=== PATIENT | male | born 1965 ===

== ENCOUNTER 2018-06-23 11:11 | Observation (INO) | payer OTHER ==
--- NOTE | 2018-06-23 12:14 | C.PDOC ---
History Of Present Illness 52 y/o male presents to ED with c/o left eye twitching for 1 week and left arm numbness described as "pins and needles" for 2 days. Patient states numbness started on fingertips and arm radiating to elbow. Patient reports yesterday had mild headache and slight dizziness which resolved on its own. Today while at work patient developed numbness to left 3 digits unable to move and numbness sensation to left cheek. Patient denies visual changes, changes in speech, ETOH or drug use. Time Seen by Provider: 06/23/18 11:46 Chief Complaint (Nursing): Weakness/Neurological Deficit History Per: Patient History/Exam Limitations: no limitations Onset/Duration Of Symptoms: Days Current Symptoms Are (Timing): Still Present Past Medical History Reviewed: Historical Data, Nursing Documentation, Vital Signs Vital Signs: Last Vital Signs Temp 98.4 F 06/23/18 11:19 Pulse 65 06/23/18 11:19 Resp 18 06/23/18 11:19 BP 177/90 H 06/23/18 11:19 Pulse Ox 97 06/23/18 11:19 - Medical History PMH: Hypercholesterolemia Surgical History: No Surg Hx - [facility] Procedures BONE GRAFT TO FACE BONE (05/13/14) OTHER THERAPEUTIC APHERESIS (05/13/14) PARTIAL MANDIBULECTOMY (05/13/14) WIDE EXC BONY PALATE LES (05/13/14) Family History: States: No Known Family Hx - Social History Hx Alcohol Use: No Hx Substance Use: No Review Of Systems Constitutional: Negative for: Fever, Chills Cardiovascular: Negative for: Chest Pain Respiratory: Negative for: Shortness of Breath Gastrointestinal: Negative for: Nausea, Vomiting, Abdominal Pain, Diarrhea Neurological: Positive for: Numbness (to left arm and elbow, left cheek). Negative for: Weakness, Change in Speech, Confusion, Headache, Dizziness Physical Exam - Physical Exam Appears: Non-toxic, No Acute Distress Skin: Warm, Dry, No Rash Head: Atraumatic, Normacephalic Eye(s): bilateral: Normal Inspection Oral Mucosa: Moist Neck: Normal ROM, Supple Cardiovascular: Rhythm Regular Respiratory: Normal Breath Sounds, No Rales, No Rhonchi, No Wheezing Gastrointestinal/Abdominal: Soft, No Tenderness, No Guarding, No Rebound Neurological/Psych: Oriented x3, Normal Speech (speaking in full sentences), Normal Cognition, Normal Motor, Normal Sensation, Other (no facial droop) ED Course And Treatment - Laboratory Results Result Diagrams: 06/23/18 12:31 06/23/18 12:31 Lab Interpretation: No Acute Changes ECG: Interpreted By Me, Viewed By Me ECG Rhythm: Sinus Rhythm ECG Interpretation: No Acute Changes Rate From EC O2 Sat by Pulse Oximetry: 97 (RA) Pulse Ox Interpretation: Normal - CT Scan/US HEad Other Rad Studies (CT/US): Read By Radiologist, Radiology Report Reviewed CT/US Interpretation: Accession No. : [id number]. Patient Name / ID : NICOLASA BUTLER / [id number]. Exam Date : 06/23/2018 12:36:29 ( Approved ). Study Comment : Sex / Age : M / 52Y. Creator : Charmaine Moore. Dictator : Robyn Thomas V. Woodworking Craftsman : Sales And Service Specialist : Robyn Thomas V. Approver2 : Report Date : 06/23/2018 12:41:08. My Comment : . This report is currently processing and HAS NOT BEEN OFFICIALLY SIGNED BY THE PHYSICIAN - ESTIMATED TIME OF APPROVAL IS 06/23/2018 13:14. Date of service: 06/23/2018. PROCEDURE: CT HEAD WITHOUT CONTRAST. HISTORY: TIA. COMPARISON: A CT maxillofacial study 02/17/2014 is noted. TECHNIQUE: Axial computed tomography images were obtained through the head/brain without intravenous contrast. Radiation dose: Total exam DLP = 1029.17 mGy-cm. This CT exam was performed using one or more of the following dose reduction techniques: Automated exposure control, adjustment of the mA and/or kV according to patient size, and/or use of iterative reconstruction technique. FINDINGS: HEMORRHAGE: No intracranial hemorrhage. BRAIN: A 7 mm rounded hypodensity in the right basal ganglionic- caudate nucleus present of unknown chronicity. No marked mass effect here is appreciated. The chronicity of this appearance is unknown. A lacunar infarct here is 1 consideration. Other etiologies are not excluded, if further evaluation is needed consider MRI of the brain without with contrast. Is difficult to confirm or refute the presence of such a finding on the prior CT study-equivocal hypodensity similar in size but not exactly similar in position is question on the CT maxillofacial study from series 3, image 91. VENTRICLES: Unremarkable. No hydrocephalus. CALVARIUM: Unremarkable. PARANASAL SINUSES: Unremarkable as visualized. No significant inflammatory changes. MASTOID AIR CELLS: Unremarkable as visualized. No inflammatory changes. OTHER FINDINGS: None. IMPRESSION: Approximately 7 mm rounded hypodensity in the right caudate nucleus of indeterminate chronicity. No gross hemorrhage or mass effect or edema associated with this is appreciated. A lacunar infarct is 1 consideration. Other etiologies affecting the right caudate nucleus are not excluded. If neededconsider MRI of the brain without with contrast. No intracranial hemorrhage or mass effect. NIHSS Stroke Scale - Date/Time Evaluation Performed Date Performed: 06/23/18 Time Performed: 11:40 When Was NIHSS Performed: Baseline - How Severe is the Stroke Level of Consciousness: 0=Alert LOC to Questions: 0=Both comments correct LOC to commands: 0=Obeys both correctly Best Gaze: 0=Normal Visual: 0=No visual loss Facial: 0=Normal Motor Arm - Left: 0=No drift Motor Arm - Right: 0=No drift Motor Leg - Left: 0=No drift Motor Leg - Right: 0=No drift Limb Ataxia: 0=Absent Sensory: 0=Normal Best Language: 0=No aphasia Dysarthia: 0=Normal articulation Extinction & Inattention (Neglect): 0=Normal, no object Score: 0 Medical Decision Making Medical Decision Making: Impression: dizziness, weakness, numbness likely TIA Plan: * CT head w/o contrast * ECG * Blood work * UA * Aspirin * IV fluids Progress: 1313 Spoke with neuro diamond broker Dr Rodriguez for consult and will come to ED to evaluate Unremarkable as visualized. No inflammatory changes. CT IMPRESSION: Approximately 7 mm rounded hypodensity in the right caudate nucleus of indeterminate chronicity. No gross hemorrhage or mass effect or edema associated with this is appreciated. A lacunar infarct is 1 consideration. Other etiologies affecting the right caudate nucleus are not excluded. If needed consider MRI of the brain without with contrast. No intracranial hemorrhage or mass effect. Dr Rodriguez in ED and requests MRI and to admit patient. Contact Dr Woodruff for admission and accepted. Patient admitted to tele Disposition - Disposition Disposition: HOSPITALIZED Disposition Time: 13:40 Condition: STABLE - POA Present On Arrival: None - Clinical Impression Clinical Impression: TIA (transient ischemic attack) - PA / VISION REHABILITATION THERAPIST / Resident Statement MD/DO has reviewed & agrees with the documentation as recorded. - Scribe Statement The provider has reviewed the documentation as recorded by the Scribmini Martinez All medical record entries made by the Sandraibmini were at my direction and personally dictated by me. I have reviewed the chart and agree that the record accurately reflects my personal performance of the history, physical exam, medical decision making, and the department course for this patient. I have also personally directed, reviewed, and agree with the discharge instructions and disposition. Decision To Admit - Pt Status Changed To: Hospital Disposition Of: Observation - . Bed Request Type: Telemetry Admitting Physician: Antwon Woodruff Jr. Patient Diagnosis: TIA (transient ischemic attack)
[2018-06-23] MEDS ORDERED: Sodium Chloride 0.9% 1,000 ML ONE (12:21)
--- NOTE | 2018-06-23 12:27 | RAD ---
Date of service: 06/23/2018 HISTORY: Code Stroke COMPARISON: No prior. FINDINGS: LUNGS: Shallow lung volumes. Minimal asymmetrical elevation of the right hemidiaphragm. No consolidation appreciated PLEURA: No significant pleural effusion identified, no pneumothorax apparent. CARDIOVASCULAR: No aortic atherosclerotic calcification present. Cardiomegaly . probable top-normal pulmonary vascular status OSSEOUS STRUCTURES: No significant abnormalities. VISUALIZED UPPER ABDOMEN: Normal. OTHER FINDINGS: None. IMPRESSION: Cardiomegaly. Probable top-normal pulmonary vascular status.
[2018-06-23 12:35] LABS: BASO # 0.1 K/uL (0.0-0.2); BASO % 0.9 % (0.0-2.0); EOS % 0.1 % (0.0-4.0); LYMPH # 2.8 K/uL (1.0-4.3); LYMPH % 30.9 % (20.0-40.0); MEAN CELL VOLUME 86.5 fL (80.0-94.0); MEAN CORPUSCULAR HGB CONC 33.5 g/dL (33.0-37.0); MEAN PLATELET VOLUME 8.7 fL (7.2-11.7); MONO # 0.5 K/uL (0.0-0.8); MONO % 5.8 % (0.0-10.0); NEUT # 5.6 K/uL (1.8-7.0); NEUT % 62.3 % (50.0-75.0); NRBC % 0.2 % (0.0-2.0); RBC 6.2 Mil/uL (4.40-5.90)
[2018-06-23 12:43] LABS: INR 1.1; PROTHROMBIN TIME 12.3 SECONDS (9.7-12.2)
[2018-06-23 12:54] LABS: ALB/GLOB RATIO 1.4 (1.0-2.1); ALBUMIN 4.8 g/dL (3.5-5.0); ALT/SGPT 83 U/L (21-72); AST/SGOT 65 U/L (17-59); BLOOD UREA NITROGEN 13 mg/dL (9-20); CALCIUM 9.3 mg/dl (8.6-10.4); GFR NON-AFRICAN AMERICAN > 60; HDL CHOLESTEROL 43 mg/dL (30-70)
[2018-06-23 13:05] LABS: LDL CHOLESTEROL 161 mg/dL (0-129)
[2018-06-23] MEDS: Sodium Chloride 0.9% 1,000 ML IV SCH ×2 (13:12→22:38)
--- NOTE | 2018-06-23 13:12 | CT ---
Date of service: 06/23/2018 PROCEDURE: CT HEAD WITHOUT CONTRAST. HISTORY: TIA COMPARISON: A CT maxillofacial study 02/17/2014 is noted. TECHNIQUE: Axial computed tomography images were obtained through the head/brain without intravenous contrast. Radiation dose: Total exam DLP = 1029.17 mGy-cm. This CT exam was performed using one or more of the following dose reduction techniques: Automated exposure control, adjustment of the mA and/or kV according to patient size, and/or use of iterative reconstruction technique. FINDINGS: HEMORRHAGE: No intracranial hemorrhage. BRAIN: A 7 mm rounded hypodensity in the right basal ganglionic-caudate nucleus present of unknown chronicity. No marked mass effect here is appreciated. The chronicity of this appearance is unknown. A lacunar infarct here is 1 consideration. Other etiologies are not excluded, if further evaluation is needed consider MRI of the brain without with contrast. Is difficult to confirm or refute the presence of such a finding on the prior CT study-equivocal hypodensity similar in size but not exactly similar in position is question on the CT maxillofacial study from series 3, image 91. VENTRICLES: Unremarkable. No hydrocephalus. CALVARIUM: Unremarkable. PARANASAL SINUSES: Unremarkable as visualized. No significant inflammatory changes. MASTOID AIR CELLS: Unremarkable as visualized. No inflammatory changes. OTHER FINDINGS: None. IMPRESSION: Approximately 7 mm rounded hypodensity in the right caudate nucleus of indeterminate chronicity. No gross hemorrhage or mass effect or edema associated with this is appreciated. A lacunar infarct is 1 consideration. Other etiologies affecting the right caudate nucleus are not excluded. If neededconsider MRI of the brain without with contrast. No intracranial hemorrhage or mass effect. Comments: Study marked for PA review .
[2018-06-23 13:14] LABS: URINE BILIRUBIN NEGATIVE (NEGATIVE); URINE BLOOD NEGATIVE (NEGATIVE); URINE CLARITY Clear (Clear); URINE COLOR Yellow (YELLOW); URINE GLUCOSE (UA) NORMAL (Normal); URINE LEUKOCYTE ESTERASE NEG Leu/uL (Negative); URINE PROTEIN NEGATIVE (NEGATIVE); URINE UROBILINOGEN NORMAL mg/dL (0.2-1.0)
--- NOTE | 2018-06-23 15:10 | CP.PCM.CON ---
History of Present Illness - History of Present Illness History of Present Illness: Called to see this patient for a neurology consult. In brief, is a 52 yr old male who has had one week intermittent numbness and tingling of his left arm and left leg, now resolved. Full consult dictated. Please see report for more details. PLan: 1. Admit for stroke workup. 2. MRI BRain without tanisha 3. Aspirin 4. PErmissive htn 5. Cta head and neck Our team will follow Thank you Dr. aldrich Past Patient History - Past Medical History & Family History Past Medical History?: Yes - Past Social History Smoking Status: Never Smoked - CARDIAC Hx Hypercholesterolemia: Yes - PULMONARY Hx Respiratory Disorders: No - NEUROLOGICAL Hx Neurological Disorder: No - HEENT Hx HEENT Problems: No - RENAL Hx Chronic Kidney Disease: No - ENDOCRINE/METABOLIC Hx Endocrine Disorders: No - HEMATOLOGICAL/ONCOLOGICAL Hx Blood Disorders: No - INTEGUMENTARY Hx Dermatological Problems: No - MUSCULOSKELETAL/RHEUMATOLOGICAL Hx Musculoskeletal Disorders: No - GASTROINTESTINAL Hx Gastrointestinal Disorders: No - GENITOURINARY/GYNECOLOGICAL Hx Genitourinary Disorders: No - PSYCHIATRIC Hx Substance Use: No - SURGICAL HISTORY Hx Surgeries: Yes Other/Comment: facial surgery - ANESTHESIA Hx Anesthesia: Yes Hx Anesthesia Reactions: No Hx Malignant Hyperthermia: No Meds Allergies/Adverse Reactions: Allergies Allergy/AdvReac Type Severity Reaction Status Date / Time No Known Allergies Allergy Verified 06/23/18 13:39 - Medications Medications: Current Medications Sodium Chloride (Sodium Chloride 0.9%) 1,000 mls @ 100 mls/hr IV .Q10H CRISTOBAL Last Admin: 06/23/18 13:12 Dose: 100 mls/hr Results - Vital Signs Recent Vital Signs: Last Vital Signs Temp 98.2 F 06/23/18 13:11 Pulse 64 06/23/18 13:11 Resp 16 06/23/18 13:11 BP 168/93 H 06/23/18 13:11 Pulse Ox 97 06/23/18 13:16 - Labs Result Diagrams: 06/23/18 12:31 06/23/18 12:31 Labs: Laboratory Results - last 24 hr 06/23/18 06/23/18 06/23/18 11:21 12:31 12:31 WBC 9.0 RBC 6.20 H Hgb 18.0 Hct 53.6 H MCV 86.5 MCH 29.0 MCHC 33.5 RDW 14.0 Plt Count 231 MPV 8.7 Neut % (Auto) 62.3 Lymph % (Auto) 30.9 [place] % (Auto) 5.8 Eos % (Auto) 0.1 Baso % (Auto) 0.9 Neut # (Auto) 5.6 Lymph # (Auto) 2.8 [place] # (Auto) 0.5 Eos # (Auto) 0.0 Baso # (Auto) 0.1 PT 12.3 H INR 1.1 APTT 34 Sodium Potassium Chloride Carbon Dioxide Anion Gap BUN Creatinine Est GFR ( Amer) Est GFR (Non-Af Amer) POC Glucose (mg/dL) 75 Random Glucose Hemoglobin A1c Calcium Total Bilirubin AST ALT Alkaline Phosphatase Troponin I Total Protein Albumin Globulin Albumin/Globulin Ratio Triglycerides Cholesterol LDL Cholesterol Direct HDL Cholesterol Urine Color Urine Clarity Urine pH Ur Specific [place] Urine Protein Urine Glucose (UA) Urine Ketones Urine Blood Urine Nitrate Urine Bilirubin Urine Urobilinogen Ur Leukocyte Esterase Urine RBC (Auto) 06/23/18 06/23/18 06/23/18 12:31 12:31 13:03 WBC RBC Hgb Hct MCV MCH MCHC RDW Plt Count MPV Neut % (Auto) Lymph % (Auto) [place] % (Auto) Eos % (Auto) Baso % (Auto) Neut # (Auto) Lymph # (Auto) [place] # (Auto) Eos # (Auto) Baso # (Auto) PT INR APTT Sodium 140 Potassium 4.2 Chloride 102 Carbon Dioxide 26 Anion Gap 17 BUN 13 Creatinine 1.0 Est GFR ( Amer) > 60 Est GFR (Non-Af Amer) > 60 POC Glucose (mg/dL) Random Glucose 95 Hemoglobin A1c 5.8 Calcium 9.3 Total Bilirubin 0.7 AST 65 H ALT 83 H D Alkaline Phosphatase 115 Troponin I < 0.0120 Total Protein 8.1 Albumin 4.8 Globulin 3.4 Albumin/Globulin Ratio 1.4 Triglycerides 142 D Cholesterol 225 H LDL Cholesterol Direct 161 H HDL Cholesterol 43 Urine Color Yellow Urine Clarity Clear Urine pH 6.0 Ur Specific [place] 1.021 Urine Protein Negative Urine Glucose (UA) Normal Urine Ketones Negative Urine Blood Negative Urine Nitrate Negative Urine Bilirubin Negative Urine Urobilinogen Normal Ur Leukocyte Esterase Neg Urine RBC (Auto) 2
[2018-06-23] MEDS ORDERED: Gadodiamide 287 mg/ml 20 ml IV ONE (15:43)
--- NOTE | 2018-06-23 17:21 | MRI ---
Date of service: 06/23/2018 PROCEDURE: MRI BRAIN WITH AND WITHOUT CONTRAST HISTORY: TIA COMPARISON: Noncontrast head CT from 06/23/2018 TECHNIQUE: Multiplanar, multisequence MR images of the brain were obtained with and without intravenous contrast enhancement. 18 mL Omniscan was injected intravenously FINDINGS: HEMORRHAGE: None DWI: There is focal restricted diffusion in the right caudate head and body. BRAIN PARENCHYMA: There is T2/FLAIR hyperintense signal corresponding to the area of restricted diffusion in the right caudate head and body. There are mild chronic microangiopathic changes. There is no mass, mass effect or abnormal extra-axial fluid collection. The midline sagittal structures are normal. ENHANCEMENT: No abnormal intracranial enhancement. VENTRICLES: The ventricles are normal in size, shape and configuration. CRANIUM: There is normal bone marrow signal pattern. ORBITS: Grossly unremarkable. PARANASAL SINUSES/MASTOIDS: Predominantly clear. VASCULAR SYSTEM: There are normal signal voids in the larger intracranial arteries. OTHER FINDINGS: None . 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 Mild chronic microangiopathic changes. Important findings were discussed with Dr. Debra Rodriguez on 06/23/2018 at 5:15 p.m.
[2018-06-24 02:40] VITALS: RESP 20
--- NOTE | 2018-06-24 03:57 | CP.PCM.HP ---
History of Present Illness - History of Present Illness History of Present Illness: CC: "Numbness and tingling on my fingers" HPI: Mr. Eid is a 52 year old male with PMH hyperlipidemia, IGT was admitted to [facility] for progressive ascending numbness, tingling, and weakness of the left upper extremity that started 5-6 days ago. He states that this never happened to him before and came in today at his 's urging because he could not move his left fingers as he was making a turn while driving. He currently complains of left sided headache, drooping of the left side of his face, numbness and tingling of the left fingers all the way to his arm, but denies any fever, blurred vision, tinnitus, chest pain, palpitations, shortness of breath, nausea, vomiting, diarrhea, constipation, abdominal pain, dysuria, urinary incontinence, or swelling of the legs. ED course: NS@100, ASA 325mg PO PMH: hyperlipidemia, IGT, VitB12 def PSH: Maxillary facial bone implant surgery (2-3 years ago at [facility]) ALL: none Meds: none Family hx: Mother: DM ; Father: Bronchitis Social hx: denies ETOH, drugs, smoking. 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 absent: Fever, Weight Loss - EENT Eyes: absent: Blurred Vision Ears: absent: Ear Pain, Tinnitus Nose/Mouth/Throat: absent: Dry Mouth, Odynophagia, Sore Throat - Cardiovascular Cardiovascular: absent: Chest Pain, Leg Edema, Palpitations, Pedal Edema - Respiratory Respiratory: absent: Cough, Dyspnea - Gastrointestinal Gastrointestinal: absent: Abdominal Pain, Constipation, Nausea, Vomiting - Genitourinary Genitourinary: absent: Dysuria, Urinary Incontinence - Musculoskeletal Musculoskeletal: Muscle Weakness, Numbness, Tingling - Integumentary Integumentary: absent: Swelling - Neurological Neurological: Numbness, Focal Weakness, Headaches, Tingling, Weakness. absent: Confusion, Loss of Vision - Psychiatric Psychiatric: absent: Change in Appetite - Endocrine Endocrine: absent: Fatigue Past Patient History - Past Medical History & Family History Past Medical History?: Yes - Past Social History Smoking Status: Never Smoked Alcohol: None Drugs: Denies - CARDIAC Hx Hypercholesterolemia: Yes - PULMONARY Hx Respiratory Disorders: No - NEUROLOGICAL Hx Neurological Disorder: No - HEENT Hx HEENT Problems: No - RENAL Hx Chronic Kidney Disease: No - ENDOCRINE/METABOLIC Hx Endocrine Disorders: No - HEMATOLOGICAL/ONCOLOGICAL Hx Blood Disorders: No - INTEGUMENTARY Hx Dermatological Problems: No - MUSCULOSKELETAL/RHEUMATOLOGICAL Hx Musculoskeletal Disorders: No - GASTROINTESTINAL Hx Gastrointestinal Disorders: No - GENITOURINARY/GYNECOLOGICAL Hx Genitourinary Disorders: No - PSYCHIATRIC Hx Substance Use: No - SURGICAL HISTORY Hx Surgeries: Yes Other/Comment: facial surgery - ANESTHESIA Hx Anesthesia: Yes Hx Anesthesia Reactions: No Hx Malignant Hyperthermia: No Meds Allergies/Adverse Reactions: Allergies Allergy/AdvReac Type Severity Reaction Status Date / Time No Known Allergies Allergy Verified 06/23/18 13:39 Physical Exam - Constitutional Appears: Well, No Acute Distress - Head Exam Head Exam: ATRAUMATIC, NORMOCEPHALIC - Eye Exam Eye Exam: EOMI, PERRL Pupil Exam: NORMAL ACCOMODATION - ENT Exam ENT Exam: Mucous Membranes Moist - Respiratory Exam Respiratory Exam: Clear to Auscultation Bilateral, NORMAL BREATHING PATTERN. absent: Accessory Muscle Use, Rales, Rhonchi, Wheezes - Cardiovascular Exam Cardiovascular Exam: REGULAR RHYTHM, +S1, +S2. absent: JVD - GI/Abdominal Exam GI & Abdominal Exam: Normal Bowel Sounds, Soft. absent: Distended, Tenderness - Extremities Exam Extremities exam: Positive for: normal capillary refill, normal inspection, pedal pulses present. Negative for: pedal edema Additional comments: IV on left arm AC Radial/DP palpable and present - Neurological Exam Neurological exam: Alert, CN II-XII Intact, Normal Gait, Oriented x3, Reflexes Normal - Psychiatric Exam Psychiatric exam: Normal Affect, Normal Mood - Skin Skin Exam: Normal Color, Warm Results - Vital Signs Recent Vital Signs: Last Vital Signs Temp 98.0 F 06/23/18 23:50 Pulse 64 06/23/18 23:50 Resp 20 06/23/18 23:50 BP 134/76 06/23/18 23:50 Pulse Ox 96 06/23/18 23:50 - Labs Result Diagrams: 06/23/18 12:31 06/23/18 12:31 Labs: Laboratory Results - last 24 hr 1106/23/18 06/23/18 11:21 12:31 12:31 WBC 9.0 RBC 6.20 H Hgb 18.0 Hct 53.6 H MCV 86.5 MCH 29.0 MCHC 33.5 RDW 14.0 Plt Count 231 MPV 8.7 Neut % (Auto) 62.3 Lymph % (Auto) 30.9 [place] % (Auto) 5.8 Eos % (Auto) 0.1 Baso % (Auto) 0.9 Neut # (Auto) 5.6 Lymph # (Auto) 2.8 [place] # (Auto) 0.5 Eos # (Auto) 0.0 Baso # (Auto) 0.1 PT 12.3 H INR 1.1 APTT 34 Sodium Potassium Chloride Carbon Dioxide Anion Gap BUN Creatinine Est GFR ( Amer) Est GFR (Non-Af Amer) POC Glucose (mg/dL) 75 Random Glucose Hemoglobin A1c Calcium Total Bilirubin AST ALT Alkaline Phosphatase Troponin I Total Protein Albumin Globulin Albumin/Globulin Ratio Triglycerides Cholesterol LDL Cholesterol Direct HDL Cholesterol Urine Color Urine Clarity Urine pH Ur Specific [place] Urine Protein Urine Glucose (UA) Urine Ketones Urine Blood Urine Nitrate Urine Bilirubin Urine Urobilinogen Ur Leukocyte Esterase Urine RBC (Auto) 06/23/18 06/23/18 06/23/18 12:31 12:31 13:03 WBC RBC Hgb Hct MCV MCH MCHC RDW Plt Count MPV Neut % (Auto) Lymph % (Auto) [place] % (Auto) Eos % (Auto) Baso % (Auto) Neut # (Auto) Lymph # (Auto) [place] # (Auto) Eos # (Auto) Baso # (Auto) PT INR APTT Sodium 140 Potassium 4.2 Chloride 102 Carbon Dioxide 26 Anion Gap 17 BUN 13 Creatinine 1.0 Est GFR ( Amer) > 60 Est GFR (Non-Af Amer) > 60 POC Glucose (mg/dL) Random Glucose 95 Hemoglobin A1c 5.8 Calcium 9.3 Total Bilirubin 0.7 AST 65 H ALT 83 H D Alkaline Phosphatase 115 Troponin I < 0.0120 Total Protein 8.1 Albumin 4.8 Globulin 3.4 Albumin/Globulin Ratio 1.4 Triglycerides 142 D Cholesterol 225 H LDL Cholesterol Direct 161 H HDL Cholesterol 43 Urine Color Yellow Urine Clarity Clear Urine pH 6.0 Ur Specific [place] 1.021 Urine Protein Negative Urine Glucose (UA) Normal Urine Ketones Negative Urine Blood Negative Urine Nitrate Negative Urine Bilirubin Negative Urine Urobilinogen Normal Ur Leukocyte Esterase Neg Urine RBC (Auto) 2 Assessment & Plan - Assessment and Plan (Free Text) Assessment: 52 year old male PMH hyperlipidemia, IGT, VitB12 def admitted to [facility] for stroke Plan: Stroke - Head CT (06/23): Approximately 7 mm rounded hypodensity in the right caudate nucleus of indeterminate chronicity. No gross hemorrhage or mass effect or edema associated with this is appreciated. A lacunar infarct is 1 consideration. Other etiologies affecting the right caudate nucleus are not excluded. If neededconsider MRI of the brain without with contrast. - CXR (06/23): Cardiomegaly - Brain MRI (06/23): Late acute/subacute infarction in the right caudate head and body. Mild chronic microangiopathic changes. - EKG (06/23): NSR @ 70 - UA (06/23): neg - Consult Neurology: Dr. Rodriguez - lizzeth appreciated - NS 1L, ASA 325 given in EWD - ASA 81mg PO qd - Troponin neg x1 - f/u labs AM (B12, TSH) - OT/PT Hypertension - Lisinopril 5mg PO qd - monitor vitals Hypercholesterolemia - Lipid panel (06/23): TG 142 ; Cholesterol 225 ; LDL 161 ; HDL 43 - Crestor 10mg PO HS Impaired glucose intolerance - HgA1C: 5.8 on admission - Glucose 95 on admission - monitor labs Prophylaxis/Diet - DVT prophylaxis: SCD - GI Prophylaxis: none indicated at this time - HHD diet D/W Dr. Woodruff. All medical management per Dr. Ranjan Woods PGY-1 - Date & Time Date: 06/23/18 Time: 20:00
[2018-06-24] MEDS: Sodium Chloride 0.9% 1,000 ML IV SCH ×2 (06:17→08:23)
[2018-06-24 07:29] LABS: BASO % 0.5 % (0.0-2.0); EOS # 0.1 K/uL (0.0-0.7); HEMOGLOBIN 17.1 g/dL (12.0-18.0); LYMPH # 2.4 K/uL (1.0-4.3); LYMPH % 32.2 % (20.0-40.0); MEAN CELL VOLUME 86.1 fL (80.0-94.0); MEAN CORPUSCULAR HEMOGLOBIN 29.1 pg (27.0-31.0); MEAN CORPUSCULAR HGB CONC 33.8 g/dL (33.0-37.0); MEAN PLATELET VOLUME 8.6 fL (7.2-11.7); MONO # 0.5 K/uL (0.0-0.8); MONO % 6.2 % (0.0-10.0); NEUT # 4.6 K/uL (1.8-7.0); NEUT % 60.1 % (50.0-75.0); NRBC % 0.1 % (0.0-2.0); RBC 5.87 Mil/uL (4.40-5.90); RED CELL DISTRIBUTION WIDTH 13.6 % (11.5-14.5); WHITE BLOOD COUNT 7.6 K/uL (4.8-10.8)
[2018-06-24 07:34] LABS: ALB/GLOB RATIO 1.4 (1.0-2.1); ALT/SGPT 81 U/L (21-72); AST/SGOT 41 U/L (17-59); BLOOD UREA NITROGEN 12 mg/dL (9-20); CALCIUM 8.5 mg/dl (8.6-10.4); GFR NON-AFRICAN AMERICAN > 60
--- NOTE | 2018-06-24 07:51 | CON ---
DATE: 06/23/2018 NEUROLOGY CONSULTATION This neurology consult was called by ER attending, Dr. Crum, in [facility]. 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 Numbness of the fingertips and arm radiating to the shoulder, although correct location is not available. There are no other complaints. Of note, the patient has secondary to surgery that was done when he was in the teen years. PAST MEDICAL HISTORY: High blood pressure, high cholesterol. No diabetes. No thyroid issues. PAST SURGICAL HISTORY: of the left wrist and repair. FAMILY HISTORY AND SOCIAL HISTORY: The patient is , has several children. No tobacco. No alcohol. ALLERGIES: NO KNOWN DRUG ALLERGIES. REVIEW OF SYSTEMS: Significant only for malaise, fatigue, and numbness and tingling. PHYSICAL EXAMINATION: GENERAL: Alert and oriented x3. NEUROLOGIC: Cranial nerves II through XII are normal. Pupils are equal, round, and reactive to light. Motor, tone is normal, strength is normal. Sensory is intact to fine touch, pin, position, vibration sense. Cerebellar: Cranial nerves, there is no dysmetria. Gait is normal. DTRs are +1 and +2 in lower limbs bilaterally. NIH stroke scale is 0. Of note, the patient is not a tPA candidate because of resolution of symptoms and duration as well. LABORATORY DATA: Labs are as follows: White count 9, hemoglobin 18, and hematocrit 53.6. Chemistries normal except for AST and ALT which are 55 and 82 respectively. Cholesterol is 225, triglycerides are 142, LDL is 161, all high. Urine is normal. Tox screen was not done . Brain MRI was done, but has not yet been reported. CAT scan of the head shows prior lacunar infarct with possible lesion in the right caudate head. MRI of the brain was done, and upon my reading shows the following: Acute stroke in the right caudate head with another punctate lesion in the higher cortical left MCA region. 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 Differential is lacunar. PLAN: The patient will be admitted for stroke workup. 1. Permissive hypertension. 2. Echo. 3. CTA of the head and neck, considering the patient has had cholesterol, he might have carotid stenosis. 4. Start aspirin. 5. IV fluids at 100 mL of normal saline. 6. Lipid profile has already been done. 7. PT, ST, OT. Our team will follow. Thank you for this interesting consult. Debra Rodriguez MD
[2018-06-24] MEDS ORDERED: Iodixanol 320 MG/ML 100 ML BOTTLE IV ONE (10:36)
--- NOTE | 2018-06-24 11:14 | CP.PCM.PN ---
Subjective - Date & Time of Evaluation Date of Evaluation: 06/24/18 Time of Evaluation: 11:14 - Subjective Subjective: PGY-1 medicine progress note for Dr. Woodruff Pt was seen and examined at bedside. No acute events overnight. Pt is complaining of minimal numbness to the left first, second and fifth digits, which is much improved from initial presentation of symptoms. Pt also reports dizziness iwth rapid head movements, feeling like the room is spinning. His headache is resolved at time of examination with Tylenol 650 mg PO x 1. Pt denies fever, chills, chest pain, sob, abdominal pain, n/v/d, hematochezia, melena, seizure activity, lightheadedness, focal weakness. Objective - Vital Signs/Intake and Output Vital Signs (last 24 hours): Temp Pulse Resp BP Pulse Ox 98.3 F 60 20 131/77 96 06/24/18 07:15 06/24/18 07:46 06/24/18 07:15 06/24/18 07:15 06/24/18 08:00 Intake and Output: 06/24/18 06/24/18 06:59 18:59 Intake Total 800 Balance 800 - Medications Medications: Current Medications Aspirin (Aspirin Chewable) 325 mg PO DAILY [facility] Sodium Chloride (Sodium Chloride 0.9%) 1,000 mls @ 100 mls/hr IV .Q10H [facility] Last Admin: 06/24/18 08:23 Dose: Not Given Lisinopril (Zestril) 5 mg PO DAILY [facility] Last Admin: 06/24/18 09:40 Dose: Not Given Metformin HCl (Glucophage) 500 mg PO BID [facility] Rosuvastatin Calcium (Crestor) 10 mg PO HS [facility] Last Admin: 06/23/18 22:20 Dose: 10 mg - Labs Labs: 06/24/18 07:11 06/24/18 07:11 PT 12.3 SECONDS (9.7-12.2) H 06/23/18 12:31 INR 1.1 06/23/18 12:31 APTT 34 SECONDS (21-34) 06/23/18 12:31 - Constitutional Appears: Non-toxic, No Acute Distress - Head Exam Head Exam: ATRAUMATIC, NORMAL INSPECTION - Eye Exam Eye Exam: EOMI, Normal appearance Pupil Exam: PERRL - ENT Exam ENT Exam: Mucous Membranes Moist - Neck Exam Neck Exam: Full ROM - Respiratory Exam Respiratory Exam: Clear to Ausculation Bilateral, NORMAL BREATHING PATTERN. absent: Rales, Rhonchi, Wheezes - Cardiovascular Exam Cardiovascular Exam: REGULAR RHYTHM, +S1, +S2 - GI/Abdominal Exam GI & Abdominal Exam: Soft, Normal Bowel Sounds. absent: Distended, Firm, Guarding, Rigid, Tenderness - Extremities Exam Extremities Exam: Normal Capillary Refill, Normal Inspection. absent: Calf Tenderness, Pedal Edema - Back Exam Back Exam: NORMAL INSPECTION - Neurological Exam Neurological Exam: Alert, Awake, CN II-XII Intact, Oriented x3 Neuro motor strength exam: Left Upper Extremity: 5, Right Upper Extremity: 5, Left Lower Extremity: 5, Right Lower Extremity: 5 Additional comments: (+) decreased sensation in dorsal left first, second, and fifth digits; good pulses and capillary refill. - Psychiatric Exam Psychiatric exam: Normal Affect, Normal Mood - Skin Skin Exam: Dry, Normal Color, Warm Assessment and Plan - Assessment and Plan (Free Text) Assessment: 52 year old male PMH hyperlipidemia, impaired glucose tolerance, VitB12 def admitted to [facility] for stroke Plan: Stroke - Head CT (06/23): Approximately 7 mm rounded hypodensity in the right caudate nucleus of indeterminate chronicity. No gross hemorrhage or mass effect or edema associated with this is appreciated. A lacunar infarct is 1 consideration. Other etiologies affecting the right caudate nucleus are not excluded. If needed consider MRI of the brain without with contrast. - CXR (06/23): Cardiomegaly - Brain MRI (06/23): Late acute/subacute infarction in the right caudate head and body. Mild chronic microangiopathic changes. - EKG (06/23): NSR @ 70 - UA (06/23): neg - Consult Neurology: Dr. Rodriguez - recs appreciated - f/u echo with bubble study, AT3, Factor V leiden, Protein C/S, PT gene analysis, homocysteine - NS 1L, ASA 325 given in ED - ASA increased to 325 po daily - Troponin neg x1 - B12 and TSH are normal - OT/PT Hypertension - Lisinopril 5mg PO qd - monitor vitals Hypercholesterolemia - Lipid panel (06/23): TG 142 ; Cholesterol 225 ; LDL 161 ; HDL 43 - Crestor 10mg PO HS Impaired glucose intolerance - HgA1C: 5.8 on admission - pt started on Metformin 500 mg PO Q12h - Glucose 95 on admission - monitor labs Prophylaxis/Diet - DVT prophylaxis: SCD - GI Prophylaxis: none indicated at this time - HHD/CCD diet D/W Dr. Woodruff. All medical management as per Dr. Ranjan Boudreaux PGY-1
--- NOTE | 2018-06-24 11:39 | CT ---
Date of service: 06/24/2018 PROCEDURE: CT Angiography of the Brain and Neck HISTORY: cva possible tia COMPARISON: None available. TECHNIQUE: CT angiography of the head and neck was performed following intravenous contrast administration. Coronal and sagittal maximum intensity projection reformatted images were generated. Contrast Dose: Visipaque 320, 100 cc Radiation dose: Total exam DLP = 628.17 mGy-cm. This CT exam was performed using one or more of the following dose reduction techniques: Automated exposure control, adjustment of the mA and/or kV according to patient size, and/or use of iterative reconstruction technique. FINDINGS: INTERNAL CEREBRAL ARTERIES: Unremarkable. The skull base, petrous, cavernous and supraclinoid segments are bilaterally widely patent. ANTERIOR CEREBRAL ARTERIES: Unremarkable. A1 and A2 segments are widely patent. Smaller distal branches unremarkable, as visualized. MIDDLE CEREBRAL ARTERIES: Unremarkable. M1 and M2 segments are widely patent. Perisylvian branches grossly symmetric. POSTERIOR CIRCULATION: Basilar Artery: Unremarkable. Distal Vertebral Arteries: Unremarkable. Posterior Cerebral Arteries: Unremarkable. Posterior Inferior Cerebellar Arteries: Unremarkable. NECK CTA: Common Carotid arteries: The bilateral common carotid appear widely patent from their origins to their bifurcations with no significant stenosis appreciated. No evidence to suggest common carotid artery dissection. Internal Carotid arteries: No significant stenosis is appreciated throughout the cervical internal carotid artery segments bilaterally and there is no evidence of dissection either. External Carotid arteries: Appear unremarkable bilaterally. Vertebral arteries: The bilateral vertebral arteries appear normal in caliber from their origins to their distal cervical segments. No significant stenosis or definite pattern of dissection. ANEURYSM/ VASCULAR MALFORMATIONS: None. OTHER FINDINGS: None. IMPRESSION: Unremarkable CT Angiography of the Brain and Neck.
--- NOTE | 2018-06-25 06:56 | CARD ---
APPROVED REPORT Date of service: 06/24/2018 EXAM: Two-dimensional and M-mode echocardiogram with Doppler and color Doppler. INDICATION CVA/TIA RISK FACTORS Hypertension Hyperlipidemia Diabetes 2D DIMENSIONS IVSd1.3 (0.7-1.1cm)Aortic Root (2D)3.1 (2.0-3.7cm) LVDd4.3 (3.9-5.9cm)PWd1.2 (0.7-1.1cm) LA Vqtkom99 (18-58mL)LVDs2.8 (2.5-4.0cm) FS (%) 35.3 %LVEF (%)65.0 (>50%) LVEF (Kurtz's)70.39 %IVC0.00 cm M-Mode DIMENSIONS RVDd1.59 (2.1-3.2cm)Left Atrium (MM)4.20 (2.5-4.0cm) IVSd0.85 (0.7-1.1cm)Aortic Root2.62 (2.2-3.7cm) LVDd5.38 (4.0-5.6cm)Aortic Cusp Exc.1.55 (1.5-2.0cm) PWd1.00 (0.7-1.1cm)FS (%) 46 % LVDs2.91 (2.0-3.8cm)TAPSE21.08 cm LVEF (%)77 (>50%) Mitral Valve MV E Zxwlvufs72.0cm/sMV A Hccfukss57.6cm/sE/A ratio2.6 TDI Lateral E' Peak V12.74cm/sMedial E' Peak V6.42cm/sE/Lateral E'5.3 E/Medial E'10.4 Tricuspid Valve TR Peak Tvaskmqx664th/sTR Peak Gr.[id number] LEFT VENTRICLE The left ventricle is normal size. The left ventricle is normal size. There is normal left ventricular wall thickness. The left ventricular function is normal. The left ventricular ejection fraction is within the normal range. The left ventricular function is normal. The left ventricular ejection fraction is within the normal range. There is normal LV segmental wall motion. The left ventricular diastolic function is normal. RIGHT VENTRICLE The right ventricle is normal size. ATRIA The left atrium size is normal. The right atrium size is normal. AORTIC VALVE The aortic valve is normal in structure. MITRAL VALVE The mitral valve is normal in structure. Mitral regurgitation is trace to mild. TRICUSPID VALVE The tricuspid valve is normal in structure. There is mild tricuspid regurgitation. <Conclusion> Normal LV systolic function. Borderline dilated LA. Trace to mild TR.
--- NOTE | 2018-06-25 07:36 | CARD ---
APPROVED REPORT Date of service: 06/23/2018 EKG Measurement Heart [id number] <Conclusion> Normal sinus rhythm Inferior infarct, age undetermined Abnormal ECG
[2018-06-25 08:53] LABS: BASO % 0.5 % (0.0-2.0); EOS % 0.5 % (0.0-4.0); HEMOGLOBIN 18.1 g/dL (12.0-18.0); LYMPH # 2.4 K/uL (1.0-4.3); LYMPH % 28.6 % (20.0-40.0); MEAN CELL VOLUME 85.6 fL (80.0-94.0); MEAN CORPUSCULAR HEMOGLOBIN 29.5 pg (27.0-31.0); MEAN CORPUSCULAR HGB CONC 34.5 g/dL (33.0-37.0); MEAN PLATELET VOLUME 8.7 fL (7.2-11.7); MONO # 0.6 K/uL (0.0-0.8); MONO % 6.5 % (0.0-10.0); NEUT # 5.4 K/uL (1.8-7.0); NEUT % 63.9 % (50.0-75.0); NRBC % 0.2 % (0.0-2.0); RBC 6.13 Mil/uL (4.40-5.90); RED CELL DISTRIBUTION WIDTH 13.7 % (11.5-14.5); WHITE BLOOD COUNT 8.5 K/uL (4.8-10.8)
[2018-06-25 09:17] LABS: ALB/GLOB RATIO 1.3 (1.0-2.1); ALBUMIN 4.3 g/dL (3.5-5.0); ALT/SGPT 75 U/L (21-72); AST/SGOT 40 U/L (17-59); BLOOD UREA NITROGEN 12 mg/dL (9-20); CALCIUM 8.8 mg/dl (8.6-10.4); GFR NON-AFRICAN AMERICAN > 60
[2018-06-25 09:31] VITALS: TEMP 98.1
--- NOTE | 2018-06-25 16:08 | CP.PCM.DIS ---
Provider - Provider Date of Admission: 06/23/18 13:41 Attending physician: Antwon Woodruff Jr, MD Time Spent in preparation of Discharge (in minutes): 45 Hospital Course - Lab Results Lab Results: Most Recent Lab Values WBC 8.5 K/uL (4.8-10.8) 06/25/18 08:43 RBC 6.13 Mil/uL (4.40-5.90) H 06/25/18 08:43 Hgb 18.1 g/dL (12.0-18.0) H 06/25/18 08:43 Hct 52.5 % (35.0-51.0) H 06/25/18 08:43 MCV 85.6 fL (80.0-94.0) 06/25/18 08:43 MCH 29.5 pg (27.0-31.0) 06/25/18 08:43 MCHC 34.5 g/dL (33.0-37.0) 06/25/18 08:43 RDW 13.7 % (11.5-14.5) 06/25/18 08:43 Plt Count 231 K/uL (130-400) 06/25/18 08:43 MPV 8.7 fL (7.2-11.7) 06/25/18 08:43 Neut % (Auto) 63.9 % (50.0-75.0) 06/25/18 08:43 Lymph % (Auto) 28.6 % (20.0-40.0) 06/25/18 08:43 [place] % (Auto) 6.5 % (0.0-10.0) 06/25/18 08:43 Eos % (Auto) 0.5 % (0.0-4.0) 06/25/18 08:43 Baso % (Auto) 0.5 % (0.0-2.0) 06/25/18 08:43 Neut # (Auto) 5.4 K/uL (1.8-7.0) 06/25/18 08:43 Lymph # (Auto) 2.4 K/uL (1.0-4.3) 06/25/18 08:43 [place] # (Auto) 0.6 K/uL (0.0-0.8) 06/25/18 08:43 Eos # (Auto) 0.0 K/uL (0.0-0.7) 06/25/18 08:43 Baso # (Auto) 0.0 K/uL (0.0-0.2) 06/25/18 08:43 PT 12.3 SECONDS (9.7-12.2) H 06/23/18 12:31 INR 1.1 06/23/18 12:31 APTT 34 SECONDS (21-34) 06/23/18 12:31 Sodium 140 mmol/L (132-148) 06/25/18 08:43 Potassium 4.1 mmol/L (3.6-5.2) 06/25/18 08:43 Chloride 104 mmol/L (98-107) 06/25/18 08:43 Carbon Dioxide 24 mmol/L (22-30) 06/25/18 08:43 Anion Gap 16 (10-20) 06/25/18 08:43 BUN 12 mg/dL (9-20) 06/25/18 08:43 Creatinine 1.0 mg/dL (0.8-1.5) 06/25/18 08:43 Est GFR ( Amer) > 60 06/25/18 08:43 Est GFR (Non-Af Amer) > 60 06/25/18 08:43 POC Glucose (mg/dL) 96 mg/dL (65-110) 06/25/18 11:25 Random Glucose 104 mg/dL (75-110) 06/25/18 08:43 Hemoglobin A1c 5.8 % (4.2-6.5) 06/23/18 12:31 Calcium 8.8 mg/dl (8.6-10.4) 06/25/18 08:43 Phosphorus 2.8 mg/dL (2.5-4.5) 06/25/18 08:43 Magnesium 2.0 mg/dL (1.6-2.3) 06/25/18 08:43 Total Bilirubin 0.8 mg/dL (0.2-1.3) 06/25/18 08:43 AST 40 U/L (17-59) 06/25/18 08:43 ALT 75 U/L (21-72) H 06/25/18 08:43 Alkaline Phosphatase 106 U/L (38-126) 06/25/18 08:43 Troponin I < 0.0120 ng/mL (0.00-0.120) 06/23/18 12:31 Total Protein 7.6 g/dL (6.3-8.3) 06/25/18 08:43 Albumin 4.3 g/dL (3.5-5.0) 06/25/18 08:43 Globulin 3.3 gm/dL (2.2-3.9) 06/25/18 08:43 Albumin/Globulin Ratio 1.3 (1.0-2.1) 06/25/18 08:43 Triglycerides 142 mg/dL (0-149) D 06/23/18 12:31 Cholesterol 225 mg/dL (0-199) H 06/23/18 12:31 LDL Cholesterol Direct 161 mg/dL (0-129) H 06/23/18 12:31 HDL Cholesterol 43 mg/dL (30-70) 06/23/18 12:31 Vitamin B12 326 pg/mL (239-931) 06/24/18 07:11 Homocysteine 8.7 umol/L (6.6-14.8) 06/25/18 08:43 TSH 3rd Generation 0.57 mIU/L (0.46-4.68) 06/24/18 07:11 Urine Color Yellow (YELLOW) 06/23/18 13:03 Urine Clarity Clear (Clear) 06/23/18 13:03 Urine pH 6.0 (5.0-8.0) 06/23/18 13:03 Ur Specific [place] 1.021 (1.003-1.030) 06/23/18 13:03 Urine Protein Negative mg/dL (NEGATIVE) 06/23/18 13:03 Urine Glucose (UA) Normal mg/dL (Normal) 06/23/18 13:03 Urine Ketones Negative mg/dL (NEGATIVE) 06/23/18 13:03 Urine Blood Negative (NEGATIVE) 06/23/18 13:03 Urine Nitrate Negative (NEGATIVE) 06/23/18 13:03 Urine Bilirubin Negative (NEGATIVE) 06/23/18 13:03 Urine Urobilinogen Normal mg/dL (0.2-1.0) 06/23/18 13:03 Ur Leukocyte Esterase Neg Kath/uL (Negative) 06/23/18 13:03 Urine RBC (Auto) 2 /hpf (0-3) 06/23/18 13:03 - Hospital Course Hospital Course: Upon Admission Patient is a 52 year old male with PMH hyperlipidemia, IGT was admitted to [facility] for progressive ascending numbness, tingling, and weakness of the left upper extremity that started 5-6 days ago. He states that this never happened to him before and came in today at his 's urging because he could not move his left fingers as he was making a turn while driving. He currently complains of left sided headache, drooping of the left side of his face, numbness and tingling of the left fingers all the way to his arm, but denies any fever, blurred vision, tinnitus, chest pain, palpitations, shortness of breath, nausea, vomiting, diarrhea, constipation, abdominal pain, dysuria, urinary incontinence, or swelling of the legs. Hospital Course Patient is a 52 yo male admitted to hospital for stroke like symptoms. Neurology, Dr. Rodriguez, was consulted. Head CT showed approximately a 7 mm rounded hypodensity in the right caudate nucleus of indeterminate chronicity. No gross hemorrhage or mass effect or edema associated with this is appreciated. A lacunar infarct is 1 consideration. Other etiologies affecting the right caudate nucleus are not excluded. If needed consider MRI of the brain without with contrast. Brain MRI showed Late acute/subacute infarction in the right caudate head and body. Mild chronic microangiopathic changes. Echo showed mild TR with good ejection fraction. Head/Neck CTA was unremarkable. Patient was given aspirin, lisinopril, crestor, and metformin during his stay. Patient symptoms resolved and patient was discharged with followup instructions. Discharge Plan 1. Patient is stable for discharge to home as per Dr. Woodruff. 2. Patient should follow up with primary medical doctor, Dr. Woodruff, within a week of discharge from hospital. 3. Patient is educated to take the following medications when he goes home: Aspirin 81mg, Crestor 10mg at night, Metformin 500mg twice a day, and Lisinopril 5mg by mouth daily. 4. Patient understands the plan as above and agrees. 5. Patient is educated to return to hospital if symptoms return or worsen. Disclaimer Written above is a synopsis of patient current hospital admission. For full report refer to EMR. Discharge Exam - Head Exam Head Exam: ATRAUMATIC, NORMAL INSPECTION - Additional Findings Additional findings: - Constitutional Appears: Non-toxic, No Acute Distress - Head Exam Head Exam: ATRAUMATIC, NORMAL INSPECTION - Eye Exam Eye Exam: EOMI, Normal appearance Pupil Exam: PERRL - ENT Exam ENT Exam: Mucous Membranes Moist - Neck Exam Neck Exam: Full ROM - Respiratory Exam Respiratory Exam: Clear to Ausculation Bilateral, NORMAL BREATHING PATTERN. absent: Rales, Rhonchi, Wheezes - Cardiovascular Exam Cardiovascular Exam: REGULAR RHYTHM, +S1, +S2 - GI/Abdominal Exam GI & Abdominal Exam: Soft, Normal Bowel Sounds. absent: Distended, Firm, Guarding, Rigid, Tenderness - Extremities Exam Extremities Exam: Normal Capillary Refill, Normal Inspection. absent: Calf Tenderness, Pedal Edema - Back Exam Back Exam: NORMAL INSPECTION - Neurological Exam Neurological Exam: Alert, Awake, CN II-XII Intact, Oriented x3 Neuro motor strength exam: Left Upper Extremity: 5, Right Upper Extremity: 5, Left Lower Extremity: 5, Right Lower Extremity: 5 - Psychiatric Exam Psychiatric exam: Normal Affect, Normal Mood - Skin Skin Exam: Dry, Normal Color, Warm Discharge Plan - Discharge Medications Prescriptions: Aspirin [Aspirin Chewable] 81 mg PO DAILY #30 chew Lisinopril [Zestril] 5 mg PO DAILY #30 tab metFORMIN [glucOPHAGE] 500 mg PO BID #60 tab Rosuvastatin Calcium [Crestor] 10 mg PO HS #30 tab - Follow Up Plan Condition: STABLE Disposition: HOME/ ROUTINE Instructions: Transient Ischemic Attack, Stroke, Prediabetes, Metformin Additional Instructions: 1. Patient is stable for discharge to home as per Dr. Woodruff. 2. Patient should follow up with primary medical doctor, Dr. Woodruff, within a week of discharge from hospital. 3. Patient is educated to take the following medications when he goes home: Aspirin 81mg, Crestor 10mg at night, Metformin 500mg twice a day, and Lisinopril 5mg by mouth daily. 4. Patient understands the plan as above and agrees. 5. Patient is educated to return to hospital if symptoms return or worsen. Referrals: Antwon Woodruff Jr., MD [Medical Doctor] -
[2018-06-25 16:09] VITALS: BP 151/81; PULSE 64
[2018-06-25 17:01] VITALS: O2SAT 95
== END 2018-06-25 16:30 | disposition home or self-care (01) ==
LOC: C.ER 11:11 → C.6T 13:41 → C.9E 13:53 → C.6T 14:57
PROVIDERS: ADMIT Internal Medicine; ATTEND Internal Medicine
DX: R42 Dizziness and giddiness (principal); E78.5 Hyperlipidemia, unspecified; R53.1 Weakness; R20.0 Anesthesia of skin
CPT/HCPCS: 36415; 70450; 70496; 70498; 70552; 71045; 80053; 80061; 81001; 81240; 81241; 82607; 82948; 83036; 83090; 83735; 84100; 84443; 84484; 85025; 85300; 85303; 85305; 85610; 85730; 93005; 93306; 97161; 97165; 97530; 99285; A9579; G0378; G8978; G8979; G8987; G8988; G8989; J7030; Q9967

== ENCOUNTER 2018-07-07 19:08 | Observation (INO) | payer OTHER ==
[2018-07-07] MEDS ORDERED: Sodium Chloride 0.9% 1,000 ML IV ONE (19:27)
--- NOTE | 2018-07-07 19:30 | C.PDOC ---
History Of Present Illness 52 year old male presents to the ER with a complaint of left facial numbness and slurred speech since 1845, associated with mild numbness to the left upper extremity. Patient had a similar episode last week and was admitted. Denies c hest pain, SOB, fever, or chills. Chief Complaint (Nursing): Weakness/Neurological Deficit History Per: Patient History/Exam Limitations: no limitations Onset/Duration Of Symptoms: Mins Current Symptoms Are (Timing): Still Present Associated Symptoms Preceding Syncopal Episode: No Predromal Symptoms (Sudden Onset) Seizure Or Post-ictal Symptoms: None Fall Associated With With Symptoms: No - Symptoms Of CVA Associated Symptoms: Impaired Speech (Slurred) Character Of Deficits: Left: Sensory Loss, Face: Sensory Loss, Arm: Sensory Loss Past Medical History Reviewed: Historical Data, Nursing Documentation, Vital Signs Vital Signs: Last Vital Signs Temp 98.2 F 07/07/18 19:18 Pulse 65 07/07/18 19:18 Resp 20 07/07/18 19:18 BP 164/94 H 07/07/18 19:18 Pulse Ox 99 07/07/18 19:18 - Medical History PMH: HTN, Hypercholesterolemia, TIA Denies: Chronic Kidney Disease - [facility] Procedures BONE GRAFT TO FACE BONE (05/13/14) OTHER THERAPEUTIC APHERESIS (05/13/14) PARTIAL MANDIBULECTOMY (05/13/14) WIDE EXC BONY PALATE LES (05/13/14) Family History: States: Unknown Family Hx - Social History Hx Alcohol Use: No Hx Substance Use: No - Immunization History Hx Tetanus Toxoid Vaccination: Yes Hx Influenza Vaccination: Yes Hx Pneumococcal Vaccination: Yes Review Of Systems Constitutional: Negative for: Fever, Chills Eyes: Negative for: Vision Change Cardiovascular: Negative for: Chest Pain, Palpitations Respiratory: Negative for: Cough, Shortness of Breath Gastrointestinal: Negative for: Nausea, Vomiting Genitourinary: Negative for: Dysuria, Hematuria Musculoskeletal: Negative for: Neck Pain Neurological: Positive for: Numbness (Left facial, mild left arm), Change in Speech Physical Exam - Physical Exam Appears: Non-toxic Skin: Normal Color, Warm, Dry Head: Atraumatic, Normacephalic Eye(s): bilateral: Normal Inspection, PERRL, EOMI Nose: Normal Oral Mucosa: Moist Neck: Normal, No Midline Cervical Tenderness, No Paracervical Tenderness, Supple Chest: Symmetrical, No Tenderness Cardiovascular: Rhythm Regular Respiratory: Normal Breath Sounds, No Rales, No Rhonchi, No Wheezing Gastrointestinal/Abdominal: Soft, No Tenderness Back: No CVA Tenderness Extremity: Normal ROM (x4) Neurological/Psych: Oriented x3, Normal Speech, Normal Cranial Nerves, Normal Motor, Normal Sensation, Other (No focal deficits) Gait: Steady ED Course And Treatment - Laboratory Results Result Diagrams: 07/07/18 19:33 O2 Sat by Pulse Oximetry: 99 (Room air) Pulse Ox Interpretation: Normal Progress Note: CT head, EKG, blood work, and CXR ordered. IV fluids administered. NIHSS Stroke Scale 2 - Date/Time Evaluation Performed Date Performed: 07/07/18 Time Performed: 19:31 When Was NIHSS Performed: Baseline - How Severe is the Stroke Level of Consciousness: 0=Alert LOC to Questions: 0=Both comments correct LOC to commands: 0=Obeys both correctly Best Gaze: 0=Normal Visual: 0=No visual loss Facial: 0=Normal Motor Arm - Left: 0=No drift Motor Arm - Right: 0=No drift Motor Leg - Left: 0=No drift Motor Leg - Right: 0=No drift Limb Ataxia: 0=Absent Sensory: 0=Normal Best Language: 0=No aphasia Dysarthia: 0=Normal articulation Extinction & Inattention (Neglect): 0=Normal, no object Score: 0 Disposition Discussed With : Antwon Woodruff Jr. Doctor Will See Patient In The: Hospital Counseled Patient/Family Regarding: Diagnosis - Disposition Referrals: Lynette Hunter DO [Primary Care Provider] - Disposition: HOSPITALIZED Disposition Time: 20:12 Condition: STABLE Forms: [facility] (Icelandic) - POA Present On Arrival: None - Clinical Impression Clinical Impression: TIA (transient ischemic attack) - Scribe Statement The provider has reviewed the documentation as recorded by the Scribe Harmeet Del Toro All medical record entries made by the Scribe were at my direction and personally dictated by me. I have reviewed the chart and agree that the record accurately reflects my personal performance of the history, physical exam, medical decision making, and the department course for this patient. I have also personally directed, reviewed, and agree with the discharge instructions and disposition.
[2018-07-07 19:39] LABS: BASO % 0.4 % (0.0-2.0); EOS # 0.1 K/uL (0.0-0.7); EOS % 0.8 % (0.0-4.0); HEMOGLOBIN 17.1 g/dL (12.0-18.0); LYMPH # 4.4 K/uL (1.0-4.3); LYMPH % 37.3 % (20.0-40.0); MEAN CELL VOLUME 86.2 fL (80.0-94.0); MEAN CORPUSCULAR HEMOGLOBIN 29.1 pg (27.0-31.0); MEAN CORPUSCULAR HGB CONC 33.7 g/dL (33.0-37.0); MEAN PLATELET VOLUME 9.1 fL (7.2-11.7); MONO # 0.8 K/uL (0.0-0.8); MONO % 7.2 % (0.0-10.0); NEUT # 6.4 K/uL (1.8-7.0); NEUT % 54.3 % (50.0-75.0); NRBC % 0.1 % (0.0-2.0); RBC 5.87 Mil/uL (4.40-5.90); RED CELL DISTRIBUTION WIDTH 13.4 % (11.5-14.5); WHITE BLOOD COUNT 11.7 K/uL (4.8-10.8)
[2018-07-07 19:58] LABS: INR 1.1; PROTHROMBIN TIME 11.9 SECONDS (9.7-12.2)
[2018-07-07 20:14] LABS: ALB/GLOB RATIO 1.4 (1.0-2.1); ALBUMIN 4.6 g/dL (3.5-5.0); ALT/SGPT 54 U/L (21-72); AST/SGOT 42 U/L (17-59); BLOOD UREA NITROGEN 16 mg/dL (9-20); CALCIUM 9.1 mg/dl (8.6-10.4); GFR NON-AFRICAN AMERICAN > 60
--- NOTE | 2018-07-08 00:31 | CP.PCM.HP ---
History of Present Illness - History of Present Illness History of Present Illness: PGY-1 H&P note for Dr Antwon Woodruff CC: " weakness, left arm numbness" Patient is a 52 year old Male with pmhx of stroke (06/23), DM, HTN and hyperlipidemia that came to the ED for right arm numbness, as well as weakness and shaking in his lower extremity that started today at 6:40 pm. is at bedside, states that her and her son noticed his left side of face was drooping, as well as slurring of speech. Patient states he was not able to get words out when he wanted to speak. Patient admits to having blurry vision when these symptoms occurred. Patient states he is having headaches, which he has been experiencing since 2 weeks ago when he was admitted to the hospital for similar symptoms. Patient states most of the symptoms have resolved at this time, including the slurring of speech and left side face droop, but continues to experience headaches. Denies Fever, chills, diaphoresis, dizziness, vision changes, chest pain, SOB, palpitations, abdominal pain, nausea, vomiting, diarrhea, constipation, dysuria, blood in stools or urine, leg pain. 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 - Present on Admission Any Indicators Present on Admission: No Review of Systems - Review of Systems All systems: reviewed and no additional remarkable complaints except Review of Systems: as stated in HPI Past Patient History - Infectious Disease Hx of Infectious Diseases: None - Past Medical History & Family History Past Medical History?: Yes - Past Social History Smoking Status: Never Smoked - CARDIAC Hx Hypercholesterolemia: Yes Hx Hypertension: Yes - PULMONARY Hx Respiratory Disorders: No - NEUROLOGICAL Hx Transient Ischemic Attacks (TIA): Yes - HEENT Hx HEENT Problems: No - RENAL Hx Chronic Kidney Disease: No - ENDOCRINE/METABOLIC Hx Endocrine Disorders: Yes Hx Diabetes Mellitus Type 2: Yes - HEMATOLOGICAL/ONCOLOGICAL Hx Blood Disorders: No - INTEGUMENTARY Hx Dermatological Problems: No - MUSCULOSKELETAL/RHEUMATOLOGICAL Hx Musculoskeletal Disorders: No - GASTROINTESTINAL Hx Gastrointestinal Disorders: No - GENITOURINARY/GYNECOLOGICAL Hx Genitourinary Disorders: No - PSYCHIATRIC Hx Substance Use: No - SURGICAL HISTORY Hx Surgeries: Yes Other/Comment: facial surgery - ANESTHESIA Hx Anesthesia: Yes Hx Anesthesia Reactions: No Hx Malignant Hyperthermia: No Meds Allergies/Adverse Reactions: Allergies Allergy/AdvReac Type Severity Reaction Status Date / Time No Known Allergies Allergy Verified 06/23/18 13:39 Physical Exam - Constitutional Appears: Well, Non-toxic, No Acute Distress - Head Exam Head Exam: ATRAUMATIC, NORMAL INSPECTION, NORMOCEPHALIC - Eye Exam Eye Exam: EOMI, Normal appearance, PERRL Pupil Exam: NORMAL ACCOMODATION, PERRL - ENT Exam ENT Exam: Mucous Membranes Moist, Normal Exam, Normal Oropharynx - Neck Exam Neck exam: Positive for: Full Rom, Normal Inspection. Negative for: Lymphadenopathy, Tenderness, Thyromegaly - Respiratory Exam Respiratory Exam: Clear to Auscultation Bilateral, NORMAL BREATHING PATTERN. absent: Rales, Rhonchi, Wheezes - Cardiovascular Exam Cardiovascular Exam: REGULAR RHYTHM, +S1, +S2. absent: Diastolic murmur, Systolic Murmur - GI/Abdominal Exam GI & Abdominal Exam: Normal Bowel Sounds, Rigid, Soft. absent: Guarding, Tenderness - Extremities Exam Extremities exam: Positive for: full ROM, normal inspection, pedal pulses present. Negative for: pedal edema, tenderness - Back Exam Back exam: FULL ROM, NORMAL INSPECTION - Neurological Exam Neurological exam: Alert, CN II-XII Intact, Normal Gait, Oriented x3, Reflexes Normal - Expanded Neurological Exam Expanded Cranial nerves: EOM's Intact: Normal, Facial Palsey w/Forehead Movement: Normal, Facial Palsey w/o Forehead Movement: Normal, Facial Sensation: Normal, Tongue Deviation: Normal Cerebellar Function: Finger to Nose: Normal, Romberg: Normal Upper motor neuron: Pronator Drift: Normal Sensory exam: Lower Extremity Light Touch: Normal, Upper Extremity Light Touch: Normal Neuro motor strength exam: Left Upper Extremity: 5, Right Upper Extremity: 5, L eft Lower Extremity: 5, Right Lower Extremity: 5 - Psychiatric Exam Psychiatric exam: Normal Affect, Normal Mood - Skin Skin Exam: Dry, Intact, Normal Color, Warm Results - Vital Signs Recent Vital Signs: Last Vital Signs Temp 97.9 F 07/07/18 22:09 Pulse 62 07/07/18 22:09 Resp 18 07/07/18 22:09 BP 142/88 07/07/18 22:09 Pulse Ox 97 07/07/18 22:09 - Labs Result Diagrams: 07/07/18 19:33 07/07/18 19:33 Labs: Laboratory Results - last 24 hr 07/07/18 07/07/18 07/07/18 19:33 19:33 19:46 WBC 11.7 H RBC 5.87 Hgb 17.1 Hct 50.6 MCV 86.2 MCH 29.1 MCHC 33.7 RDW 13.4 Plt Count 249 MPV 9.1 Neut % (Auto) 54.3 Lymph % (Auto) 37.3 [place] % (Auto) 7.2 Eos % (Auto) 0.8 Baso % (Auto) 0.4 Neut # (Auto) 6.4 Lymph # (Auto) 4.4 H [place] # (Auto) 0.8 Eos # (Auto) 0.1 Baso # (Auto) 0.0 PT 11.9 INR 1.1 APTT 34 Sodium 138 Potassium 4.5 Chloride 99 Carbon Dioxide 28 Anion Gap 15 BUN 16 Creatinine 1.1 Est GFR ( Amer) > 60 Est GFR (Non-Af Amer) > 60 Random Glucose 92 Calcium 9.1 Total Bilirubin 0.6 AST 42 ALT 54 Alkaline Phosphatase 97 Total Protein 8.0 Albumin 4.6 Globulin 3.4 Albumin/Globulin Ratio 1.4 Assessment & Plan - Assessment and Plan (Free Text) Plan: TIA, r/o Stroke - head CT w/o contrast in the ED: unremarkable - Head CT (06/23): Approximately 7 mm rounded hypodensity in the right caudate nucleus of indeterminate chronicity. - Brain MRI (06/23): Late acute/subacute infarction in the right caudate head and body. Mild chronic microangiopathic changes. - head and neck CT angio ordered, STAT - F/U results - EKG at ER: normal sinus - consider neuro consult after CT angio results - Start Plavix 75mg PO QD - Continue Aspirin 81 mg PO QD - Neuro checks Q4hrs hx of DM - Continue Metformin 500mg PO BID - accuchecks hx of HTN - continue Lisinopril 5mg PO qd - continue to monitor vitals history of hypercholesteremia - continue Crestor 10mg PO HS Prophylaxis/Diet - DVT prophylaxis: SCD - GI Prophylaxis: none indicated at this time - HHD, low CHO diet Plan discussed with Dr Ranjan Gatica, PGY-1 - Date & Time Date: 07/07/18 Time: 21:00
[2018-07-08 01:05] VITALS: RESP 20
[2018-07-08] MEDS ORDERED: Iodixanol 320 MG/ML 100 ML BOTTLE IV ONE (04:17)
[2018-07-08 06:33] LABS: BASO % 0.4 % (0.0-2.0); EOS # 0.1 K/uL (0.0-0.7); EOS % 0.8 % (0.0-4.0); HEMOGLOBIN 15.9 g/dL (12.0-18.0); LYMPH # 2.8 K/uL (1.0-4.3); LYMPH % 30.2 % (20.0-40.0); MEAN CELL VOLUME 86.8 fL (80.0-94.0); MEAN CORPUSCULAR HEMOGLOBIN 29.2 pg (27.0-31.0); MEAN CORPUSCULAR HGB CONC 33.7 g/dL (33.0-37.0); MEAN PLATELET VOLUME 9.3 fL (7.2-11.7); MONO # 0.7 K/uL (0.0-0.8); MONO % 7.1 % (0.0-10.0); NEUT # 5.7 K/uL (1.8-7.0); NEUT % 61.5 % (50.0-75.0); NRBC % 0.1 % (0.0-2.0); RBC 5.43 Mil/uL (4.40-5.90); RED CELL DISTRIBUTION WIDTH 13.4 % (11.5-14.5); WHITE BLOOD COUNT 9.2 K/uL (4.8-10.8)
[2018-07-08 06:47] LABS: ALB/GLOB RATIO 1.3 (1.0-2.1); ALBUMIN 3.5 g/dL (3.5-5.0); ALT/SGPT 51 U/L (21-72); AST/SGOT 25 U/L (17-59); BLOOD UREA NITROGEN 13 mg/dL (9-20); CALCIUM 7.8 mg/dl (8.6-10.4); GFR NON-AFRICAN AMERICAN > 60
[2018-07-08 08:00] VITALS: BP 122/73; TEMP 98.4; O2SAT 97
[2018-07-08 08:30] VITALS: PULSE 76
--- NOTE | 2018-07-08 08:34 | CT ---
Date of service: 07/07/2018 PROCEDURE: CT HEAD WITHOUT CONTRAST. HISTORY: seizure COMPARISON: 06/23/2018 TECHNIQUE: Axial computed tomography images were obtained through the head/brain without intravenous contrast. Radiation dose: Total exam DLP = 1071.34 mGy-cm. This CT exam was performed using one or more of the following dose reduction techniques: Automated exposure control, adjustment of the mA and/or kV according to patient size, and/or use of iterative reconstruction technique. FINDINGS: HEMORRHAGE: No intracranial hemorrhage. BRAIN: No mass effect or edema. Scattered focal lucencies in the subcortical and periventricular white matter suggestive for chronic microvascular ischemic change. Persistent focal lucency in the right caudate head suggestive for a chronic lacunar infarct. Persistent small focal hypodensity in the left basal ganglia which may represent a prominent perivascular space versus small lacunar infarct. VENTRICLES: Unremarkable. No hydrocephalus. CALVARIUM: Unremarkable. PARANASAL SINUSES: Unremarkable as visualized. No significant inflammatory changes. MASTOID AIR CELLS: Unremarkable as visualized. No inflammatory changes. OTHER FINDINGS: None. IMPRESSION: No acute intracranial abnormality. Chronic microvascular ischemic changes. Persistent focal lucencies in the right caudate head and left basal ganglia which may represent small lacunar infarcts. If symptoms persists, consider correlation with MRI. These findings were preliminarily reported at 7:52 p.m. on 07/07/[address] Ramiro Hickman from [employer].
--- NOTE | 2018-07-08 08:39 | CP.PCM.PN ---
Subjective - Date & Time of Evaluation Date of Evaluation: 07/08/18 Time of Evaluation: 07:45 Objective - Vital Signs/Intake and Output Vital Signs (last 24 hours): Temp Pulse Resp BP Pulse Ox 98.4 F 76 20 122/73 97 07/08/18 07:10 07/08/18 07:40 07/08/18 07:10 07/08/18 07:10 07/08/18 07:10 - Medications Medications: Current Medications Aspirin (Aspirin Chewable) 81 mg PO DAILY [facility] Clopidogrel Bisulfate (Plavix) 75 mg PO Q24H [facility] Last Admin: 07/08/18 00:02 Dose: 75 mg Sodium Chloride (Sodium Chloride 0.45%) 1,000 mls @ 100 mls/hr IV .Q10H [facility] Lisinopril (Zestril) 5 mg PO DAILY [facility] Metformin HCl (Glucophage) 500 mg PO BIDCC [facility] Rosuvastatin Calcium (Crestor) 10 mg PO HS [facility] Last Admin: 07/08/18 00:02 Dose: 10 mg - Labs Labs: 07/08/18 06:25 07/08/18 06:25 PT 11.9 SECONDS (9.7-12.2) 07/07/18 19:46 INR 1.1 07/07/18 19:46 APTT 34 SECONDS (21-34) 07/07/18 19:46
[2018-07-08] MEDS ORDERED: Dextrose 50% SYRINGE Inj (50 ml) IV PRN (08:40)
[2018-07-08] MEDS ORDERED: Glucagon Recombinant 1 mg Inj IM PRN (08:40)
[2018-07-08] MEDS: Sodium Chloride 0.45% 1,000 ML IV SCH ×2 (09:00→09:28)
--- NOTE | 2018-07-08 09:08 | RAD ---
Chest x-ray single frontal view HISTORY: Seizure. COMPARISON: 06/23/2018 FINDINGS: No focal infiltrate or effusion. Heart size within normal limits. IMPRESSION: No focal infiltrate or effusion.
--- NOTE | 2018-07-08 11:20 | CP.PCM.DIS ---
Provider - Provider Date of Admission: 07/07/18 20:26 Attending physician: Antwon Woodruff Jr, MD Time Spent in preparation of Discharge (in minutes): 35 Hospital Course - Lab Results Lab Results: Most Recent Lab Values WBC 9.2 K/uL (4.8-10.8) 07/08/18 06:25 RBC 5.43 Mil/uL (4.40-5.90) 07/08/18 06:25 Hgb 15.9 g/dL (12.0-18.0) 07/08/18 06:25 Hct 47.1 % (35.0-51.0) 07/08/18 06:25 MCV 86.8 fL (80.0-94.0) 07/08/18 06:25 MCH 29.2 pg (27.0-31.0) 07/08/18 06:25 MCHC 33.7 g/dL (33.0-37.0) 07/08/18 06:25 RDW 13.4 % (11.5-14.5) 07/08/18 06:25 Plt Count 209 K/uL (130-400) 07/08/18 06:25 MPV 9.3 fL (7.2-11.7) 07/08/18 06:25 Neut % (Auto) 61.5 % (50.0-75.0) 07/08/18 06:25 Lymph % (Auto) 30.2 % (20.0-40.0) 07/08/18 06:25 [place] % (Auto) 7.1 % (0.0-10.0) 07/08/18 06:25 Eos % (Auto) 0.8 % (0.0-4.0) 07/08/18 06:25 Baso % (Auto) 0.4 % (0.0-2.0) 07/08/18 06:25 Neut # (Auto) 5.7 K/uL (1.8-7.0) 07/08/18 06:25 Lymph # (Auto) 2.8 K/uL (1.0-4.3) 07/08/18 06:25 [place] # (Auto) 0.7 K/uL (0.0-0.8) 07/08/18 06:25 Eos # (Auto) 0.1 K/uL (0.0-0.7) 07/08/18 06:25 Baso # (Auto) 0.0 K/uL (0.0-0.2) 07/08/18 06:25 PT 11.9 SECONDS (9.7-12.2) 07/07/18 19:46 INR 1.1 07/07/18 19:46 APTT 34 SECONDS (21-34) 07/07/18 19:46 Sodium 138 mmol/L (132-148) 07/08/18 06:25 Potassium 4.3 mmol/L (3.6-5.2) 07/08/18 06:25 Chloride 103 mmol/L (98-107) 07/08/18 06:25 Carbon Dioxide 26 mmol/L (22-30) 07/08/18 06:25 Anion Gap 14 (10-20) 07/08/18 06:25 BUN 13 mg/dL (9-20) 07/08/18 06:25 Creatinine 1.0 mg/dL (0.8-1.5) 07/08/18 06:25 Est GFR ( Amer) > 60 07/08/18 06:25 Est GFR (Non-Af Amer) > 60 07/08/18 06:25 Random Glucose 92 mg/dL (75-110) 07/08/18 06:25 Calcium 7.8 mg/dl (8.6-10.4) L 07/08/18 06:25 Total Bilirubin 0.7 mg/dL (0.2-1.3) 07/08/18 06:25 AST 25 U/L (17-59) 07/08/18 06:25 ALT 51 U/L (21-72) 07/08/18 06:25 Alkaline Phosphatase 83 U/L (38-126) 07/08/18 06:25 Total Protein 6.3 g/dL (6.3-8.3) 07/08/18 06:25 Albumin 3.5 g/dL (3.5-5.0) D 07/08/18 06:25 Globulin 2.8 gm/dL (2.2-3.9) 07/08/18 06:25 Albumin/Globulin Ratio 1.3 (1.0-2.1) 07/08/18 06:25 - Hospital Course Hospital Course: On admission: CC: " weakness, left arm numbness" Patient is a 52 year old Male with pmhx of stroke (06/23), DM, HTN and hyperlipidemia that came to the ED for right arm numbness, as well as weakness and shaking in his lower extremity that started today at 6:40 pm. is at bedside, states that her and her son noticed his left side of face was drooping, as well as slurring of speech. Patient states he was not able to get words out when he wanted to speak. Patient admits to having blurry vision when these symptoms occurred. Patient states he is having headaches, which he has been experiencing since 2 weeks ago when he was admitted to the hospital for similar symptoms. Patient states most of the symptoms have resolved at this time, including the slurring of speech and left side face droop, but continues to experience headaches. Denies Fever, chills, diaphoresis, dizziness, vision changes, chest pain, SOB, palpitations, abdominal pain, nausea, vomiting, diarrhea, constipation, dysuria, blood in stools or urine, leg pain. Hospital course: Head CT and Head and Neck CTA did not show any acute findings. Pt was started on Plavix. On discharge evaluation, pt had no complaints. He was discharged with prescription for plavix and instructions to follow up with Dr. Woodruff within 1 week of discharge. He was informed to continue his previously prescribed medications as well. Images: Head CT w/o contrast: No acute intracranial abnormality. Chronic microvascular ischemic changes. Persistent focal lucencies in the right caudate head and left basal ganglia which may represent small lacunar infarcts. Head and Neck CTA: Unremarkable CTA of the neck and the brain. This is a summary of the hospital course, please see EMR for full detail. Discharge Exam - Head Exam Head Exam: ATRAUMATIC, NORMAL INSPECTION, NORMOCEPHALIC - Eye Exam Eye Exam: EOMI, Normal appearance, PERRL - ENT Exam ENT Exam: Mucous Membranes Moist - Respiratory Exam Respiratory Exam: Clear to PA & Lateral, UNREMARKABLE. absent: Rales, Rhonchi, Wheezes - Cardiovascular Exam Cardiovascular Exam: REGULAR RHYTHM, +S1, +S2 - Extremities Exam Extremities exam: normal capillary refill, normal inspection, pedal pulses present - Back Exam Back exam: NORMAL INSPECTION - Neurological Exam Neurological exam: Alert, CN II-XII Intact, Oriented x3 Additional comments: 5/5 strength in bilateral lower and upper extremities; sensation is equal and intact for bilateral upper and lower extremities - Psychiatric Exam Psychiatric exam: Normal Affect, Normal Mood - Skin Skin Exam: Dry, Intact, Normal Color, Warm Discharge Plan - Discharge Medications Prescriptions: Clopidogrel [Plavix] 75 mg PO Q24H #14 tab - Follow Up Plan Condition: STABLE Disposition: HOME/ ROUTINE Instructions: Heart Healthy Diet, Diabetes Exchange Diet, Transient Ischemic Attack (DC), Diabetes Diet , Clopidogrel Additional Instructions: Patient is medically stable for discharge home as per Dr. Woodruff. 1. Pt should continue taking all home medications as previously prescribed. 2. Additionally, pt should start taking Plavix 75 mg by mouth once daily. Pt instructed to avoid taking PPI medications, or ask Dr. Woodruff prior to starting them. 3. Pt should follow up with Dr. Woodruff within 1 week of discharge. Instructions explained to the patient, who understands and agrees with discharge plan. Referrals: Antwon Woodruff Jr., MD [Medical Doctor] -
[2018-07-08] MEDS ORDERED: (Novolin R) Insulin Human Regular 100 units/ml vial SC SCH (11:30)
--- NOTE | 2018-07-08 11:33 | CARD ---
APPROVED REPORT Date of service: 07/07/2018 EKG Measurement Heart [id number] <Conclusion> Normal sinus rhythm Inferior infarct, age undetermined Abnormal ECG
--- NOTE | 2018-07-08 11:47 | CT ---
Date of service: 2018-07-08 05:13:04 PROCEDURE: CT Angiography of the neck and brain with contrast HISTORY: TIA hx of stroke COMPARISON: None. TECHNIQUE: Contiguous axial images of the neck and brain were obtained from the level of the vertex of the skull to the superior mediastinum in the arteriographic phase of enhancement. Coronal and sagittal reformats or also generated. IV contrast dose: 100 cc Visipaque 320 Radiation dose: Total exam DLP = 554.26 mGy-cm. This CT exam was performed using one or more of the following dose reduction techniques: Automated exposure control, adjustment of the mA and/or kV according to patient size, and/or use of iterative reconstruction technique. FINDINGS: The aortic arch widely patent with no significant atherosclerotic plaque. The origins of the great vessels as well as the common carotid arteries and carotid bifurcations widely patent as well with no evidence of dissection nor significant stenosis. The internal carotid arteries including the petrous cavernous and supraclinoid segments are also patent The vertebral arteries are patent right-sided slightly larger in caliber/more dominant than the left. Basilar artery is also patent. Visualized major branches of the [id number] are relatively symmetric and patent as are the distal branch vessels. No evidence of large aneurysm nor vascular malformation. OTHER FINDINGS: n lung apices clear. IMPRESSION: Unremarkable CTA of the neck and brain.
== END 2018-07-08 13:05 | disposition home or self-care (01) ==
LOC: C.ER 19:08 → SUPCPDRO 19:08 → C.6T 20:26
PROVIDERS: ADMIT Internal Medicine; ATTEND Internal Medicine
DX: G45.9 Transient cerebral ischemic attack, unspecified (principal); E78.5 Hyperlipidemia, unspecified; I10 Essential (primary) hypertension; E11.9 Type 2 diabetes mellitus without complications
CPT/HCPCS: 36415; 70450; 70496; 70498; 71045; 80053; 82948; 85025; 85610; 85730; 93005; 97116; 97161; 97165; 97530; 99285; G0378; G8978; G8979; G8980; G8987; G8988; G8989; J7030; Q9967

== ENCOUNTER 2018-10-16 15:34 | Inpatient (IN) | payer OTHER ==
[2018-10-16 17:05] LABS: BASO # 0.1 K/uL (0.0-0.2); BASO % 0.6 % (0.0-2.0); EOS % 0.5 % (0.0-4.0); HEMOGLOBIN 16.5 g/dL (12.0-18.0); LYMPH # 2.6 K/uL (1.0-4.3); LYMPH % 27.3 % (20.0-40.0); MEAN CELL VOLUME 88.1 fL (80.0-94.0); MEAN CORPUSCULAR HEMOGLOBIN 29.5 pg (27.0-31.0); MEAN CORPUSCULAR HGB CONC 33.5 g/dL (33.0-37.0); MEAN PLATELET VOLUME 8.6 fL (7.2-11.7); MONO # 0.7 K/uL (0.0-0.8); MONO % 7.8 % (0.0-10.0); NEUT % 63.8 % (50.0-75.0); RBC 5.6 Mil/uL (4.40-5.90); RED CELL DISTRIBUTION WIDTH 14.1 % (11.5-14.5); WHITE BLOOD COUNT 9.4 K/uL (4.8-10.8)
--- NOTE | 2018-10-16 17:08 | RAD ---
Date of service: 10/16/2018 PROCEDURE: CHEST RADIOGRAPH, 1 VIEW HISTORY: SOB COMPARISON: 07/07/2018. FINDINGS: LUNGS: The lungs are well inflated and clear. PLEURA: No pneumothorax or pleural effusion. CARDIOVASCULAR: The heart is normal in size. No aortic atherosclerotic calcifications present. OSSEOUS STRUCTURES: Within normal limits for the patient's age. VISUALIZED UPPER ABDOMEN: Normal. OTHER FINDINGS: None. IMPRESSION: No active pulmonary disease.
[2018-10-16 17:16] LABS: ALB/GLOB RATIO 1.7 (1.0-2.1); ALBUMIN 4.5 g/dL (3.5-5.0); ALT/SGPT 36 U/L (21-72); AST/SGOT 32 U/L (17-59); BLOOD UREA NITROGEN 13 mg/dL (9-20); GFR NON-AFRICAN AMERICAN > 60
[2018-10-16 17:25] LABS: B-TYPE NATRIURETIC PEPTIDE 18.6 pg/mL (0-900)
--- NOTE | 2018-10-16 17:29 | CT ---
Date of service: 10/16/2018 PROCEDURE: CT HEAD WITHOUT CONTRAST. HISTORY: Dizziness COMPARISON: 07/07/2018. TECHNIQUE: Axial computed tomography images were obtained through the head/brain without intravenous contrast. Radiation dose: Total exam DLP = 996.33 mGy-cm. This CT exam was performed using one or more of the following dose reduction techniques: Automated exposure control, adjustment of the mA and/or kV according to patient size, and/or use of iterative reconstruction technique. FINDINGS: HEMORRHAGE: No intracranial hemorrhage. BRAIN: There is a chronic lacunar infarction in the right caudate head. There is no mass, mass effect or abnormal extra-axial fluid collection. The midline sagittal structures are normal. VENTRICLES: The ventricles are normal in size, shape and configuration. CALVARIUM: There is no calvarial fracture or extracranial soft tissue swelling. PARANASAL SINUSES: Predominantly clear. MASTOID AIR CELLS: Predominantly clear. OTHER FINDINGS: None. IMPRESSION: 1. No acute intracranial abnormality. If there is a persistent focal neurologic deficit and an ongoing clinical concern for acute infarction, an MRI of the brain without intravenous contrast would be a more sensitive modality for evaluation of hyperacute/acute ischemic infarction. 2. Chronic lacunar infarction in the right caudate head.
[2018-10-16] MEDS ORDERED: Aspirin 325 mg EC Tablets PO STA (18:24)
--- NOTE | 2018-10-16 18:25 | C.PDOC ---
History Of Present Illness 52 year old male presents to the ED for evaluation of chest pressure and left- sided numbness which began today. Patient was sent to the ED by Ranjan for further evaluation. Patient reports his left-sided facial numbness has improved. He denies fever, chills, radiation of pain, shortness of breath. Time Seen by Provider: 10/16/18 16:09 Chief Complaint (Nursing): Weakness/Neurological Deficit History Per: Patient History/Exam Limitations: no limitations Past Medical History Reviewed: Historical Data, Nursing Documentation, Vital Signs Vital Signs: Last Vital Signs Temp 98.5 F 10/16/18 15:41 Pulse 68 10/16/18 15:41 Resp 20 10/16/18 15:41 BP 178/92 H 10/16/18 15:41 Pulse Ox 97 10/16/18 15:41 - Medical History PMH: HTN, Hypercholesterolemia, TIA Denies: Chronic Kidney Disease - [facility] Procedures BONE GRAFT TO FACE BONE (05/13/14) OTHER THERAPEUTIC APHERESIS (05/13/14) PARTIAL MANDIBULECTOMY (05/13/14) WIDE EXC BONY PALATE LES (05/13/14) Family History: States: Unknown Family Hx - Social History Hx Alcohol Use: No Hx Substance Use: No - Immunization History Hx Tetanus Toxoid Vaccination: Yes Hx Influenza Vaccination: Yes (2019) Hx Pneumococcal Vaccination: No Review Of Systems Constitutional: Negative for: Fever, Chills Respiratory: Negative for: Shortness of Breath Neurological: Positive for: Numbness Physical Exam - Physical Exam Appears: Non-toxic, No Acute Distress Skin: Normal Color, Warm, Dry Head: Atraumatic, Normacephalic Eye(s): bilateral: Normal Inspection Oral Mucosa: Moist Neck: Supple Chest: Symmetrical, No Deformity, No Tenderness Cardiovascular: Rhythm Regular, No Murmur Respiratory: Normal Breath Sounds, No Rales, No Rhonchi, No Wheezing Extremity: Normal ROM, Capillary Refill (less than 2 seconds) Pulses: Left Radial: Normal, Right Radial: Normal Neurological/Psych: Normal Sensation, Other (minimal numbness to left side of face. 5/5 symmetrical strength to bilateral upper and lower extremities ) ED Course And Treatment - Laboratory Results Result Diagrams: 10/16/18 17:00 10/16/18 17:00 Lab Results: Troponin I < 0.0120 ng/mL (0.00-0.120) 10/16/18 17:00 NT-Pro-B Natriuret Pep 18.6 pg/mL (0-900) 10/16/18 17:00 Total Bilirubin 0.5 mg/dL (0.2-1.3) 10/16/18 17:00 AST 32 U/L (17-59) 10/16/18 17:00 ALT 36 U/L (21-72) 10/16/18 17:00 Alkaline Phosphatase 89 U/L (38-126) 10/16/18 17:00 Total Protein 7.1 g/dL (6.3-8.3) 10/16/18 17:00 Albumin 4.5 g/dL (3.5-5.0) 10/16/18 17:00 Globulin 2.6 gm/dL (2.2-3.9) 10/16/18 17:00 Albumin/Globulin Ratio 1.7 (1.0-2.1) 10/16/18 17:00 ECG Rhythm: Sinus Rhythm Interpretation Of ECG: Normal Sinus Rhythm at rate 64bpm. Poor R wave progression. Q wave in lead III. No ST/T wave abnormality. Rate From EC O2 Sat by Pulse Oximetry: 97 (on RA) Pulse Ox Interpretation: Normal Medical Decision Making Medical Decision Making: Assessment: chest pain and facial numbness Disposition Discussed With Dr.: Antwon Woodruff Jr. Doctor Will See Patient In The: Hospital Counseled Patient/Family Regarding: Studies Performed, Diagnosis - Disposition Disposition: HOSPITALIZED Disposition Time: 18:25 Condition: FAIR - Clinical Impression Clinical Impression: TIA (transient ischemic attack), Chest pain - Scribe Statement The provider has reviewed the documentation as recorded by the Scribe (Antonina Rosas) Provider Attestation: All medical record entries made by the Scribe were at my direction and personally dictated by me. I have reviewed the chart and agree that the record accurately reflects my personal performance of the history, physical exam, medical decision making, and the department course for this patient. I have also personally directed, reviewed, and agree with the discharge instructions and disposition.
--- NOTE | 2018-10-16 19:49 | CP.PCM.HP ---
History of Present Illness - History of Present Illness History of Present Illness: CC: left facial numbness/chest pressure Patient is a 52 year old male with pmhx of recent TIA(07/21) who presents to ED today with complaints of left facial numbness this morning, accompanied by chest pressure, worse with deep inspiration. Patient denies DELUCA, dizziness, facial droop, slurred speech, weakness, chest pain, palpitations, SOB, nausea, leg swelling or pain. Patient reports he hadn't had a chance to take his morning medications prior to onset of symptoms. Pt followed up with Dr. Woodruff in office several hours later, with near resolution of symptoms. Pt presented to ED for further workup. 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 Pt reports last month he followed up with instructional technology teacher Dr. Nolan for stress test with no abnormal findings. PMD: Ranjan, Cardio: Ovidio pmhx: TIA, prediabetes pshx: oral sx meds: ASA 81mg, plavix 75mg, lisinopril 5mg, metformin 500mg BID, crestor 10mg HS allergies: NKDA sochx: denies alcohol/tobacco/drug use. 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 Present on Admission - Present on Admission Any Indicators Present on Admission: No Review of Systems - Constitutional Constitutional: absent: Fever, Weakness - EENT Eyes: absent: Blurred Vision - Cardiovascular Cardiovascular: absent: Chest Pain, Dyspnea, Leg Edema, Palpitations, Syncope Additional comments: chest heaviness - Respiratory Respiratory: absent: Cough, Dyspnea - Gastrointestinal Gastrointestinal: absent: Constipation, Diarrhea, Nausea - Neurological Neurological: Numbness (left cheek/nose). absent: Abnormal Gait, Dizziness, Focal Weakness, Headaches, Loss of Vision, Sensory Deficit, Syncope, Weakness Past Patient History - Infectious Disease Hx of Infectious Diseases: None - Past Medical History & Family History Past Medical History?: Yes - Past Social History Smoking Status: Never Smoked - CARDIAC Hx Hypercholesterolemia: Yes Hx Hypertension: Yes - PULMONARY Hx Respiratory Disorders: No - NEUROLOGICAL Hx Transient Ischemic Attacks (TIA): Yes - HEENT Hx HEENT Problems: No - RENAL Hx Chronic Kidney Disease: No - ENDOCRINE/METABOLIC Hx Endocrine Disorders: Yes Hx Diabetes Mellitus Type 2: Yes - HEMATOLOGICAL/ONCOLOGICAL Hx Blood Disorders: No - INTEGUMENTARY Hx Dermatological Problems: No - MUSCULOSKELETAL/RHEUMATOLOGICAL Hx Musculoskeletal Disorders: No - GASTROINTESTINAL Hx Gastrointestinal Disorders: No - GENITOURINARY/GYNECOLOGICAL Hx Genitourinary Disorders: No - PSYCHIATRIC Hx Substance Use: No - SURGICAL HISTORY Hx Surgeries: Yes Other/Comment: facial surgery - ANESTHESIA Hx Anesthesia: Yes Hx Anesthesia Reactions: No Hx Malignant Hyperthermia: No Meds Allergies/Adverse Reactions: Allergies Allergy/AdvReac Type Severity Reaction Status Date / Time No Known Allergies Allergy Verified 10/16/18 15:47 Physical Exam - Constitutional Appears: Non-toxic, No Acute Distress - Head Exam Head Exam: ATRAUMATIC, NORMAL INSPECTION, NORMOCEPHALIC - Eye Exam Eye Exam: EOMI, Normal appearance Pupil Exam: NORMAL ACCOMODATION - ENT Exam ENT Exam: Mucous Membranes Moist, Normal Exam - Neck Exam Neck exam: Positive for: Normal Inspection - Respiratory Exam Respiratory Exam: Clear to Auscultation Bilateral, NORMAL BREATHING PATTERN - Cardiovascular Exam Cardiovascular Exam: REGULAR RHYTHM, +S1, +S2. absent: Bradycardia, Tachycardia - GI/Abdominal Exam GI & Abdominal Exam: Soft. absent: Distended, Tenderness - Extremities Exam Extremities exam: Positive for: normal inspection. Negative for: calf tenderness, pedal edema - Neurological Exam Neurological exam: Alert, Oriented x3 - Psychiatric Exam Psychiatric exam: Normal Affect, Normal Mood - Skin Skin Exam: Dry, Intact, Normal Color, Warm Results - Vital Signs Recent Vital Signs: Last Vital Signs Temp 98.5 F 10/16/18 15:41 Pulse 60 10/16/18 18:31 Resp 10 L 10/16/18 18:31 BP 141/74 10/16/18 18:31 Pulse Ox 97 10/16/18 19:37 - Labs Result Diagrams: 10/16/18 17:00 10/16/18 17:00 Labs: Laboratory Results - last 24 hr 10/16/18 10/16/18 17:00 17:00 WBC 9.4 RBC 5.60 Hgb 16.5 Hct 49.4 MCV 88.1 MCH 29.5 MCHC 33.5 RDW 14.1 Plt Count 229 MPV 8.6 Neut % (Auto) 63.8 Lymph % (Auto) 27.3 [place] % (Auto) 7.8 Eos % (Auto) 0.5 Baso % (Auto) 0.6 Neut # (Auto) 6.0 Lymph # (Auto) 2.6 [place] # (Auto) 0.7 Eos # (Auto) 0.0 Baso # (Auto) 0.1 Sodium 139 Potassium 4.3 Chloride 103 Carbon Dioxide 25 Anion Gap 15 BUN 13 Creatinine 0.8 Est GFR ( Amer) > 60 Est GFR (Non-Af Amer) > 60 Random Glucose 81 Calcium 9.0 Total Bilirubin 0.5 AST 32 ALT 36 Alkaline Phosphatase 89 Troponin I < 0.0120 NT-Pro-B Natriuret Pep 18.6 Total Protein 7.1 Albumin 4.5 Globulin 2.6 Albumin/Globulin Ratio 1.7 Assessment & Plan (1) Suspected cerebrovascular accident (CVA) Assessment and Plan: CT Head: no acute intracranial abnormality. Chronic lacunar infarct in right caudate head EKG: NSR, inferior infarct age indeterminate, cannot r/o anterior infarct f/u CTA head/neck ordered Received ASA 325mg in ED resume home meds, ASA 81mg po qd, plavix 75mg po qd neuro checks f/u lipid panel Dr. Douglas consulted Status: Acute (2) Chest pressure Assessment and Plan: m Monitor on telemetry EKG: NSR, inferior infarct age indeterminate, cannot r/o anterior infarct Troponin neg x1, f/u repeats continue home ASA 81mg po qd continue home lisinopril 5mg po qd Cardiology consult, Dr. Nolan Status: Acute (3) Pre-diabetes Assessment and Plan: Hold home metformin until 24 hrs post CTA ISS ACHS Accuchecks ACHS Hypoglycemia protocol Status: Chronic - Assessment and Plan (Free Text) Assessment: Ppx: VTE: lovenox 40mg qd GI not indicated HHD Discussed with Dr. Ranjan Leal, PGY-1
[2018-10-16] MEDS ORDERED: Dextrose 50% SYRINGE Inj (50 ml) IV PRN (20:03)
[2018-10-16] MEDS ORDERED: Glucagon Recombinant 1 mg Inj IM PRN (20:03)
[2018-10-16] MEDS ORDERED: Iodixanol 320 MG/ML 100 ML BOTTLE IV ONE (22:01)
[2018-10-16] MEDS: (Novolin R) Insulin Human Regular 100 units/ml vial SC SCH (22:30)
[2018-10-16 22:51] VITALS: RESP 20
[2018-10-17 00:46] VITALS: O2SAT 97
[2018-10-17] MEDS: (Novolin R) Insulin Human Regular 100 units/ml vial SC SCH ×3 (07:30→17:14)
[2018-10-17 07:51] LABS: BASO % 0.4 % (0.0-2.0); EOS # 0.1 K/uL (0.0-0.7); EOS % 0.8 % (0.0-4.0); HEMOGLOBIN 16.8 g/dL (12.0-18.0); LYMPH # 1.5 K/uL (1.0-4.3); LYMPH % 18.4 % (20.0-40.0); MEAN CELL VOLUME 88.2 fL (80.0-94.0); MEAN CORPUSCULAR HGB CONC 34.1 g/dL (33.0-37.0); MEAN PLATELET VOLUME 8.8 fL (7.2-11.7); MONO # 0.7 K/uL (0.0-0.8); MONO % 8.6 % (0.0-10.0); NEUT # 5.8 K/uL (1.8-7.0); NEUT % 71.8 % (50.0-75.0); RBC 5.58 Mil/uL (4.40-5.90); RED CELL DISTRIBUTION WIDTH 13.9 % (11.5-14.5); WHITE BLOOD COUNT 8.1 K/uL (4.8-10.8)
[2018-10-17 08:22] LABS: INR 1.1; PROTHROMBIN TIME 12.4 SECONDS (9.7-12.2)
[2018-10-17 08:23] LABS: ALB/GLOB RATIO 1.6 (1.0-2.1); ALBUMIN 4.1 g/dL (3.5-5.0); ALT/SGPT 40 U/L (21-72); AST/SGOT 34 U/L (17-59); BLOOD UREA NITROGEN 13 mg/dL (9-20); GFR NON-AFRICAN AMERICAN > 60; HDL CHOLESTEROL 30 mg/dL (30-70)
[2018-10-17 08:34] LABS: LDL CHOLESTEROL 63 mg/dL (0-129)
[2018-10-17] MEDS ORDERED: Enoxaparin 40 mg Syringe SC SCH (10:00)
--- NOTE | 2018-10-17 12:24 | CP.PCM.DIS ---
Provider - Provider Date of Admission: 10/16/18 18:24 Attending physician: Antwon Neville Jr, MD Consults: 10/16/18 16:22 Neurology Consult Routine Comment: Consulting Provider: Patrick Douglas Consulting Physician: Patrick Douglas Reason for Consult: left facial numbness 10/16/18 20:02 Cardiology Consult Routine Comment: Consulting Provider: Evelyne Nolan Consulting Physician: Evelyne Nolan Reason for Consult: your pt, r/o TIA, chest pressure Time Spent in preparation of Discharge (in minutes): 55 Hospital Course - Lab Results Lab Results: Most Recent Lab Values WBC 8.1 K/uL (4.8-10.8) 10/17/18 07:40 RBC 5.58 Mil/uL (4.40-5.90) 10/17/18 07:40 Hgb 16.8 g/dL (12.0-18.0) 10/17/18 07:40 Hct 49.2 % (35.0-51.0) 10/17/18 07:40 MCV 88.2 fL (80.0-94.0) 10/17/18 07:40 MCH 30.0 pg (27.0-31.0) 10/17/18 07:40 MCHC 34.1 g/dL (33.0-37.0) 10/17/18 07:40 RDW 13.9 % (11.5-14.5) 10/17/18 07:40 Plt Count 224 K/uL (130-400) 10/17/18 07:40 MPV 8.8 fL (7.2-11.7) 10/17/18 07:40 Neut % (Auto) 71.8 % (50.0-75.0) 10/17/18 07:40 Lymph % (Auto) 18.4 % (20.0-40.0) L 10/17/18 07:40 [place] % (Auto) 8.6 % (0.0-10.0) 10/17/18 07:40 Eos % (Auto) 0.8 % (0.0-4.0) 10/17/18 07:40 Baso % (Auto) 0.4 % (0.0-2.0) 10/17/18 07:40 Neut # (Auto) 5.8 K/uL (1.8-7.0) 10/17/18 07:40 Lymph # (Auto) 1.5 K/uL (1.0-4.3) 10/17/18 07:40 [place] # (Auto) 0.7 K/uL (0.0-0.8) 10/17/18 07:40 Eos # (Auto) 0.1 K/uL (0.0-0.7) 10/17/18 07:40 Baso # (Auto) 0.0 K/uL (0.0-0.2) 10/17/18 07:40 PT 12.4 SECONDS (9.7-12.2) H 10/17/18 07:40 INR 1.1 10/17/18 07:40 APTT 33 SECONDS (21-34) 10/17/18 07:40 Sodium 138 mmol/L (132-148) 10/17/18 07:40 Potassium 4.5 mmol/L (3.6-5.2) 10/17/18 07:40 Chloride 103 mmol/L (98-107) 10/17/18 07:40 Carbon Dioxide 27 mmol/L (22-30) 10/17/18 07:40 Anion Gap 12 (10-20) 10/17/18 07:40 BUN 13 mg/dL (9-20) 10/17/18 07:40 Creatinine 1.0 mg/dL (0.8-1.5) 10/17/18 07:40 Est GFR ( Amer) > 60 10/17/18 07:40 Est GFR (Non-Af Amer) > 60 10/17/18 07:40 POC Glucose (mg/dL) 83 mg/dL (65-110) 10/16/18 15:47 Random Glucose 96 mg/dL (75-110) 10/17/18 07:40 Calcium 9.0 mg/dl (8.6-10.4) 10/17/18 07:40 Total Bilirubin 0.6 mg/dL (0.2-1.3) 10/17/18 07:40 AST 34 U/L (17-59) 10/17/18 07:40 ALT 40 U/L (21-72) 10/17/18 07:40 Alkaline Phosphatase 83 U/L (38-126) 10/17/18 07:40 Troponin I < 0.0120 ng/mL (0.00-0.120) 10/17/18 07:40 NT-Pro-B Natriuret Pep 18.6 pg/mL (0-900) 10/16/18 17:00 Total Protein 6.7 g/dL (6.3-8.3) 10/17/18 07:40 Albumin 4.1 g/dL (3.5-5.0) 10/17/18 07:40 Globulin 2.6 gm/dL (2.2-3.9) 10/17/18 07:40 Albumin/Globulin Ratio 1.6 (1.0-2.1) 10/17/18 07:40 Triglycerides 122 mg/dL (0-149) 10/17/18 07:40 Cholesterol 103 mg/dL (0-199) 10/17/18 07:40 LDL Cholesterol Direct 63 mg/dL (0-129) 10/17/18 07:40 HDL Cholesterol 30 mg/dL (30-70) 10/17/18 07:40 - Hospital Course Hospital Course: Upon Admission: Patient is a 52 year old male with pmhx of recent TIA(07/21) who presents to ED today with complaints of left facial numbness this morning, accompanied by chest pressure, worse with deep inspiration. Patient denies DELUCA, dizziness, facial droop, slurred speech, weakness, chest pain, palpitations, SOB, nausea, leg swelling or pain. Patient reports he hadn't had a chance to take his morning medications prior to onset of symptoms. Pt followed up with Dr. Neville in office several hours later, with near resolution of symptoms. Pt presented to ED for further workup. 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 Pt reports last month he followed up with bread icer Dr. Nolan for stress test with no abnormal findings. PMD: Ranjan Cardio: Ovidio pmhx: TIA, prediabetes pshx: oral sx meds: ASA 81mg, plavix 75mg, lisinopril 5mg, metformin 500mg BID, crestor 10mg HS allergies: NKDA sochx: denies alcohol/tobacco/drug use. 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 Douglas consulted Imaging: - CT Head: no acute intracranial abnormality. Chronic lacunar infarct in right caudate head - EKG: NSR, inferior infarct age indeterminate, cannot r/o anterior infarct - CTA head/neck - normal Management: Received ASA 325mg in ED resume home meds, ASA 81mg po qd, plavix 75mg po qd neuro checks Patient to follow up with Dr. Douglas outpatient Chest pressure - Cardiology consult, Dr. Nolan - Monitor on telemetry - EKG: NSR, inferior infarct age indeterminate, cannot r/o anterior infarct - Troponin neg x3 - Continue home ASA 81mg po qd - Continue home lisinopril 5mg po qd Pre-diabetes Assessment and Plan: Hold home metformin- patient to resume once home ISS ACHS Accuchecks ACHS Please review EMR for full record. Discharge Exam - Head Exam Head Exam: ATRAUMATIC, NORMAL INSPECTION, NORMOCEPHALIC - Eye Exam Eye Exam: EOMI, Normal appearance, PERRL Pupil Exam: NORMAL ACCOMODATION - ENT Exam ENT Exam: Mucous Membranes Moist - Respiratory Exam Respiratory Exam: Clear to PA & Lateral, NORMAL BREATHING PATTERN. absent: Decreased Breath Sounds, Rales, Rhonchi, Wheezes - Cardiovascular Exam Cardiovascular Exam: REGULAR RHYTHM, RRR, +S1, +S2 - GI/Abdominal Exam GI & Abdominal Exam: Normal Bowel Sounds, Soft. absent: Distended, Unremarkable - Extremities Exam Extremities exam: normal inspection, pedal pulses present - Neurological Exam Neurological exam: Alert, CN II-XII Intact, Oriented x3 - Psychiatric Exam Psychiatric exam: Normal Affect, Normal Mood - Skin Skin Exam: Dry, Intact, Normal Color, Warm Discharge Plan - Follow Up Plan Condition: FAIR Disposition: HOME/ ROUTINE Instructions: Transient Ischemic Attack, Heart Healthy Diet, Transient Ischemic Attack (DC), Chest Pain (DC), Hypertension (DC) Additional Instructions: Please follow up with Dr. Neville within 1 week. Please follow up with Dr. Douglas - neurologist within 2-3 weeks. Someone will call you to arrange for the set up of a nuclear stress test with Dr. Nolan. Please continue taking your medications as prescribed by Dr. Neville. You can continue taking the Metformin starting 10/18/18. If your symptoms return, facial droop, slurring of speech, weakness in arms or leg, please come back to the ED. Please take care and be well. ---- Por favor, nguyễn un seguimiento con el Dr. neville dentro de 1 semana. Por favor, nguyễn un seguimiento con el Dr. Douglas-neurlogo dentro de 2-3 semanas. Alguien le llamar para organizar la prueba de esfuerzo nuclear con el Dr. Nolan. Por favor, contine tomando salty medicamentos segn lo prescrito por el Dr. neville. Puede continuar tomando la metformina a partir de 10/18/18. Si los sntomas regresan, cada facial, enredado de habla, debilidad en los brazos o la pierna, por favor regrese a la ED. Por favor, cudate y cudate. Referrals: Antwon Neville Jr., MD [Medical Doctor] - Patrick Douglas MD [Staff Provider] - Evelyne Nolan MD [Staff Provider] -
--- NOTE | 2018-10-17 14:32 | CP.PCM.CON ---
History of Present Illness - History of Present Illness History of Present Illness: I was asked to evaluate patient by Dr neville Patient was seen 10/17/18 0167 Patient is a 52 year old male with HTN, hypercholesterolemia DM who presents with facial numbness and chest pain. The patient states he was driving when he felt numbness of the left side of his face. He also felt chest pain. He was told to go to [facility] for further management. He feel swell and denies chest pain. Review of Systems - Constitutional Constitutional: absent: As Per HPI, Anorexia, Chills, Daytime Sleepiness, Excessive Sweating, Fatigue, Fever, Frequent Falls, Headache, Increased Appetite, Lethargy, Malaise, Night Sweats, Snoring, Sleep Apnea, Weight Gain, Weight Loss, Weakness, Other - EENT Eyes: absent: As Per HPI, Blind Spots, Blurred Vision, Change in Vision, Decreased Night Vision, Diplopia, Discharge, Dry Eye, Exophthalmos, Floaters, Irritation, Itchy Eyes, Loss of Peripheral Vision, Pain, Photophobia, Requires C orrective Lenses, Sees Flashes, Spots in Vision, Tunnel Vision, Other Visual Disturbances, Loss of Vision, Other Ears: absent: As Per HPI, Decreased Hearing, Ear Discharge, Ear Pain, Tinnitus, Abnormal Hearing, Disequilibrium, Dizziness, Other Nose/Mouth/Throat: absent: As Per HPI, Epistaxis, Nasal Congestion, Nasal Discharge, Nasal Obstruction, Nasal Trauma, Nose Pain, Post Nasal Drip, Sinus Pain, Sinus Pressure, Bleeding Gums, Change in Voice, Dental Pain, Dry Mouth, Dysphagia, Halitosis, Hoarsness, Lip Swelling, Mouth Lesions, Mouth Pain, Od ynophagia, Sore Throat, Throat Swelling, Tongue Swelling, Facial Pain, Neck Pain, Neck Mass, Other - Cardiovascular Cardiovascular: absent: As Per HPI, Acrocyanosis, Chest Pain, Chest Pain at Rest, Chest Pain with Activity, Claudication, Diaphoresis, Dyspnea, Dyspnea on Exertion, Edema, Irregular Heart Rhythm, Pain Radiating to Arm/Neck/Jaw, Leg Edema, Leg Ulcers, Lightheadedness, Orthopnea, Palpitations, Paroxysmal Nocturnal Dyspnea, Pedal Edema, Radiating Pain, Rapid Heart Rate, Slow Heart Rate, Syncope, Other - Respiratory Respiratory: absent: As Per HPI, Cough, Dyspnea, Hemoptysis, Dyspnea on Exertion, Wheezing, Snoring, Stridor, Pain on Inspiration, Chest Congestion, Excessive Mucous Production, Change in Mucous Color, Pain with Coughing, Other - Gastrointestinal Gastrointestinal: absent: As Per HPI, Abdominal Pain, Belching, Bloating, Change in Bowel Habits, Change in Stool Character, Coffee Ground Emesis, Constipation, Cramping, Diarrhea, Dyspepsia, Dysphagia, Early Satiety, Excessive Flatus, Fecal Incontinence, Heartburn, Hematemesis, Hematochezia, Loose Stools, Melena, Nausea, Odynophagia, Temesmus, Vomiting, Other - Genitourinary Genitourinary: absent: As Per HPI, Change in Urinary Stream, Difficulty Urinating, Dysuria, Flank Pain, Hematuria, Pyuria, Nocturia, Urinary Incontinence, Urinary Frequency, Urinary Hesitance, Urinary Urgency, Voiding Freq/Small Amts, Freq UTI, Hx Renal/Bladder Calculi, Hx /Renal Surgery, Bladder Distension, Other - Musculoskeletal Musculoskeletal: absent: As Per HPI, Abnormal Gait, Arthralgias, Atrophy, Back Pain, Deformity, Joint Swelling, Limited Range of Motion, Loss of Height, Muscle Cramps, Muscle Weakness, Myalgias, Neck Pain, Numbness, Radiating Pain into Limb, Stiffness, Tingling, Other - Integumentary Integumentary: absent: As Per HPI, Acne, Alopecia, Bleeding Lesions, Change in Hair, Change in Nails, Change in Pigmentation, Changing Lesions, Dry Skin, Erythema, Furuncle, Hirsutism, Lesions, New Lesions, Non-Healing Lesions, Photosensitivity, Pruritus, Rash, Skin Pain, Skin Ulcer, Sores, Striae, Swelling, Unusual Bruising, Wounds, Jaundice, Other - Neurological Neurological: Numbness - Psychiatric Psychiatric: absent: As Per HPI, Abnormal Sleep Pattern, Anhedonia, Anxiety, Auditory Hallucinations, Behavioral Changes, Change in Appetite, Change in Libido, Confusion, Depression, Difficulty Concentrating, Hallucinations, Homicidal Ideation, Hopelessness, Irritability, Memory Loss, Mood Swings, Panic Attacks, Paranoia, Suicidal Ideation, Visual Hallucinations, Tactile Hallucinations, Other - Endocrine Endocrine: absent: As Per HPI, Change in Body Appearance, Change in Libido, Cold Intolorance, Deepening of Voice, Excessive Sweating, Fatigue, Flushing, Heat Intolorance, Increase in Ring/Shoe/Hat Size, Palpitations, Polydipsia, Polyphagia, Polyuria, Other - Hematologic/Lymphatic Hematologic: absent: As Per HPI, Easy Bleeding, Easy Bruising, Lymphadenopathy, Other Past Patient History - Infectious Disease Hx of Infectious Diseases: None - Past Medical History & Family History Past Medical History?: Yes - Past Social History Smoking Status: Never Smoked - CARDIAC Hx Hypercholesterolemia: Yes Hx Hypertension: Yes - PULMONARY Hx Respiratory Disorders: No - NEUROLOGICAL Hx Transient Ischemic Attacks (TIA): Yes - HEENT Hx HEENT Problems: No - RENAL Hx Chronic Kidney Disease: No - ENDOCRINE/METABOLIC Hx Endocrine Disorders: Yes Hx Diabetes Mellitus Type 2: Yes - HEMATOLOGICAL/ONCOLOGICAL Hx Blood Disorders: No - INTEGUMENTARY Hx Dermatological Problems: No - MUSCULOSKELETAL/RHEUMATOLOGICAL Hx Musculoskeletal Disorders: No - GASTROINTESTINAL Hx Gastrointestinal Disorders: No - GENITOURINARY/GYNECOLOGICAL Hx Genitourinary Disorders: No - PSYCHIATRIC Hx Substance Use: No - SURGICAL HISTORY Hx Surgeries: Yes Other/Comment: facial surgery - ANESTHESIA Hx Anesthesia: Yes Hx Anesthesia Reactions: No Hx Malignant Hyperthermia: No Meds Allergies/Adverse Reactions: Allergies Allergy/AdvReac Type Severity Reaction Status Date / Time No Known Allergies Allergy Verified 10/16/18 15:47 - Medications Medications: Current Medications Aspirin (Aspirin Chewable) 81 mg PO DAILY [facility] Last Admin: 10/17/18 10:36 Dose: 81 mg Clopidogrel Bisulfate (Plavix) 75 mg PO Q24H [facility] Last Admin: 10/16/18 20:30 Dose: Not Given Dextrose (Dextrose 50% Inj) 0 ml IV STAT PRN; Protocol PRN Reason: Hypoglycemia Protocol Dextrose (Glutose 15) 0 gm PO ONCE PRN; Protocol PRN Reason: Hypoglycemia Protocol Enoxaparin Sodium (Lovenox) 40 mg SC DAILY [facility] Last Admin: 10/17/18 10:36 Dose: 40 mg Glucagon (Glucagen Diagnostic Kit) 0 mg IM STAT PRN; Protocol PRN Reason: Hypoglycemia Protocol Dextrose (Dextrose 5% In Water 1000 Ml) 1,000 mls @ 0 mls/hr IV .Q0M PRN; Protocol PRN Reason: Hypoglycemia Protocol Insulin Human Regular (Novolin R) 0 unit SC ACHS [facility]; Protocol Last Admin: 10/17/18 12:45 Dose: Not Given Lisinopril (Zestril) 5 mg PO DAILY [facility] Last Admin: 10/17/18 10:35 Dose: 5 mg Pneumococcal Polyvalent Vaccine (Pneumovax 23 Vaccine) 0.5 ml IM .ONCE ONE Stop: 10/18/18 10:01 Rosuvastatin Calcium (Crestor) 10 mg PO HS [facility] Last Admin: 10/16/18 22:53 Dose: 10 mg Physical Exam - Constitutional Appears: Non-toxic - Head Exam Head Exam: NORMAL INSPECTION - Eye Exam Eye Exam: Normal appearance. absent: Periorbital swelling, Periorbital tenderness, Scleral icterus - ENT Exam ENT Exam: Mucous Membranes Dry, Mucous Membranes Moist, Normal Exam - Neck Exam Neck exam: Positive for: Full Rom, Normal Inspection. Negative for: Lymphadenopathy, Tenderness, Thyromegaly - Respiratory Exam Respiratory Exam: Decreased Breath Sounds, Clear to Auscultation Bilateral, NORMAL BREATHING PATTERN - Cardiovascular Exam Cardiovascular Exam: REGULAR RHYTHM, RRR, +S1, +S2. absent: JVD, Systolic Murmur - GI/Abdominal Exam GI & Abdominal Exam: Normal Bowel Sounds, Soft. absent: Tenderness - Rectal Exam Rectal Exam: Deferred - Extremities Exam Extremities exam: Positive for: normal inspection. Negative for: pedal edema - Back Exam Back exam: NORMAL INSPECTION - Neurological Exam Neurological exam: Alert, Oriented x3 - Psychiatric Exam Psychiatric exam: Normal Affect - Skin Skin Exam: Dry, Intact, Normal Color, Warm Results - Vital Signs Recent Vital Signs: Last Vital Signs Temp 98.0 F 10/17/18 07:00 Pulse 56 L 10/17/18 08:15 Resp 20 10/17/18 07:00 BP 109/63 10/17/18 07:00 Pulse Ox 97 10/17/18 07:00 - Labs Result Diagrams: 10/17/18 07:40 10/17/18 07:40 Labs: Laboratory Results - last 24 hr 10/16/18 10/16/18 10/16/18 15:47 17:00 17:00 WBC 9.4 RBC 5.60 Hgb 16.5 Hct 49.4 MCV 88.1 MCH 29.5 MCHC 33.5 RDW 14.1 Plt Count 229 MPV 8.6 Neut % (Auto) 63.8 Lymph % (Auto) 27.3 [place] % (Auto) 7.8 Eos % (Auto) 0.5 Baso % (Auto) 0.6 Neut # (Auto) 6.0 Lymph # (Auto) 2.6 [place] # (Auto) 0.7 Eos # (Auto) 0.0 Baso # (Auto) 0.1 PT INR APTT Sodium 139 Potassium 4.3 Chloride 103 Carbon Dioxide 25 Anion Gap 15 BUN 13 Creatinine 0.8 Est GFR ( Amer) > 60 Est GFR (Non-Af Amer) > 60 POC Glucose (mg/dL) 83 Random Glucose 81 Calcium 9.0 Total Bilirubin 0.5 AST 32 ALT 36 Alkaline Phosphatase 89 Troponin I < 0.0120 NT-Pro-B Natriuret Pep 18.6 Total Protein 7.1 Albumin 4.5 Globulin 2.6 Albumin/Globulin Ratio 1.7 Triglycerides Cholesterol LDL Cholesterol Direct HDL Cholesterol 10/16/18 10/17/18 10/17/18 22:49 07:40 07:40 WBC 8.1 RBC 5.58 Hgb 16.8 Hct 49.2 MCV 88.2 MCH 30.0 MCHC 34.1 RDW 13.9 Plt Count 224 MPV 8.8 Neut % (Auto) 71.8 Lymph % (Auto) 18.4 L [place] % (Auto) 8.6 Eos % (Auto) 0.8 Baso % (Auto) 0.4 Neut # (Auto) 5.8 Lymph # (Auto) 1.5 [place] # (Auto) 0.7 Eos # (Auto) 0.1 Baso # (Auto) 0.0 PT 12.4 H INR 1.1 APTT 33 Sodium Potassium Chloride Carbon Dioxide Anion Gap BUN Creatinine Est GFR ( Amer) Est GFR (Non-Af Amer) POC Glucose (mg/dL) Random Glucose Calcium Total Bilirubin AST ALT Alkaline Phosphatase Troponin I < 0.0120 NT-Pro-B Natriuret Pep Total Protein Albumin Globulin Albumin/Globulin Ratio Triglycerides Cholesterol LDL Cholesterol Direct HDL Cholesterol 10/17/18 07:40 WBC RBC Hgb Hct MCV MCH MCHC RDW Plt Count MPV Neut % (Auto) Lymph % (Auto) [place] % (Auto) Eos % (Auto) Baso % (Auto) Neut # (Auto) Lymph # (Auto) [place] # (Auto) Eos # (Auto) Baso # (Auto) PT INR APTT Sodium 138 Potassium 4.5 Chloride 103 Carbon Dioxide 27 Anion Gap 12 BUN 13 Creatinine 1.0 Est GFR ( Amer) > 60 Est GFR (Non-Af Amer) > 60 POC Glucose (mg/dL) Random Glucose 96 Calcium 9.0 Total Bilirubin 0.6 AST 34 ALT 40 Alkaline Phosphatase 83 Troponin I < 0.0120 NT-Pro-B Natriuret Pep Total Protein 6.7 Albumin 4.1 Globulin 2.6 Albumin/Globulin Ratio 1.6 Triglycerides 122 Cholesterol 103 LDL Cholesterol Direct 63 HDL Cholesterol 30 - EKG Data EKG shows normal: Sinus rhythm Assessment & Plan (1) HTN (hypertension) Assessment and Plan: well controlled Status: Acute (2) Chest pain Assessment and Plan: Patient had a normal treadmill stress test in August. Given risk factors it is reasonable to undergo nuclear stress test. Given negative cardiac enzymes, this can be done as an outpatient. Status: Acute (3) TIA (transient ischemic attack) Assessment and Plan: recommend statin therapy, ASA 81 mg daily, Plavix 75 mg daily Status: Acute (4) Hypercholesterolemia Assessment and Plan: statin therapy Status: Acute
--- NOTE | 2018-10-17 15:53 | CP.PCM.CON ---
History of Present Illness - History of Present Illness History of Present Illness: Neurology Consultation Note: Consult requested by Dr. Woodruff Mr. Eid is a 52-year-old man with a past medical history of previous TIA, on aspirin and plavix, pre-diabetes, who had transient left facial numbness for a few hours, then resolved completely. CT head showed a chronic lacunar infarct of the right caudate head. Review of Systems - Review of Systems All systems: reviewed and no additional remarkable complaints except Past Patient History - Infectious Disease Hx of Infectious Diseases: None - Past Medical History & Family History Past Medical History?: Yes - Past Social History Smoking Status: Never Smoked - CARDIAC Hx Hypercholesterolemia: Yes Hx Hypertension: Yes - PULMONARY Hx Respiratory Disorders: No - NEUROLOGICAL Hx Transient Ischemic Attacks (TIA): Yes - HEENT Hx HEENT Problems: No - RENAL Hx Chronic Kidney Disease: No - ENDOCRINE/METABOLIC Hx Endocrine Disorders: Yes Hx Diabetes Mellitus Type 2: Yes - HEMATOLOGICAL/ONCOLOGICAL Hx Blood Disorders: No - INTEGUMENTARY Hx Dermatological Problems: No - MUSCULOSKELETAL/RHEUMATOLOGICAL Hx Musculoskeletal Disorders: No - GASTROINTESTINAL Hx Gastrointestinal Disorders: No - GENITOURINARY/GYNECOLOGICAL Hx Genitourinary Disorders: No - PSYCHIATRIC Hx Substance Use: No - SURGICAL HISTORY Hx Surgeries: Yes Other/Comment: facial surgery - ANESTHESIA Hx Anesthesia: Yes Hx Anesthesia Reactions: No Hx Malignant Hyperthermia: No Meds Allergies/Adverse Reactions: Allergies Allergy/AdvReac Type Severity Reaction Status Date / Time No Known Allergies Allergy Verified 10/16/18 15:47 - Medications Medications: Current Medications Aspirin (Aspirin Chewable) 81 mg PO DAILY [facility] Last Admin: 10/17/18 10:36 Dose: 81 mg Clopidogrel Bisulfate (Plavix) 75 mg PO Q24H [facility] Last Admin: 10/16/18 20:30 Dose: Not Given Dextrose (Dextrose 50% Inj) 0 ml IV STAT PRN; Protocol PRN Reason: Hypoglycemia Protocol Dextrose (Glutose 15) 0 gm PO ONCE PRN; Protocol PRN Reason: Hypoglycemia Protocol Enoxaparin Sodium (Lovenox) 40 mg SC DAILY [facility] Last Admin: 10/17/18 10:36 Dose: 40 mg Glucagon (Glucagen Diagnostic Kit) 0 mg IM STAT PRN; Protocol PRN Reason: Hypoglycemia Protocol Dextrose (Dextrose 5% In Water 1000 Ml) 1,000 mls @ 0 mls/hr IV .Q0M PRN; Protocol PRN Reason: Hypoglycemia Protocol Insulin Human Regular (Novolin R) 0 unit SC ACHS CRISTOBAL; Protocol Last Admin: 10/17/18 12:45 Dose: Not Given Lisinopril (Zestril) 5 mg PO DAILY [facility] Last Admin: 10/17/18 10:35 Dose: 5 mg Pneumococcal Polyvalent Vaccine (Pneumovax 23 Vaccine) 0.5 ml IM .ONCE ONE Stop: 10/18/18 10:01 Rosuvastatin Calcium (Crestor) 10 mg PO HS [facility] Last Admin: 10/16/18 22:53 Dose: 10 mg Physical Exam - Constitutional Appears: Well - Head Exam Head Exam: ATRAUMATIC, NORMAL INSPECTION, NORMOCEPHALIC - Eye Exam Eye Exam: EOMI, Normal appearance, PERRL Pupil Exam: NORMAL ACCOMODATION, PERRL - ENT Exam ENT Exam: Mucous Membranes Moist, Normal Exam - Neck Exam Neck exam: Positive for: Normal Inspection - Respiratory Exam Respiratory Exam: Clear to Auscultation Bilateral, NORMAL BREATHING PATTERN - Cardiovascular Exam Cardiovascular Exam: REGULAR RHYTHM - GI/Abdominal Exam GI & Abdominal Exam: Normal Bowel Sounds, Soft. absent: Tenderness - Extremities Exam Extremities exam: Positive for: normal inspection - Back Exam Back exam: NORMAL INSPECTION - Neurological Exam Neurological exam: Alert, CN II-XII Intact, Normal Gait, Oriented x3, Reflexes Normal - Psychiatric Exam Psychiatric exam: Normal Affect, Normal Mood - Skin Skin Exam: Dry, Intact, Normal Color, Warm Results - Vital Signs Recent Vital Signs: Last Vital Signs Temp 98.0 F 10/17/18 07:00 Pulse 56 L 10/17/18 08:15 Resp 20 10/17/18 07:00 BP 109/63 10/17/18 07:00 Pulse Ox 97 10/17/18 07:00 - Labs Result Diagrams: 10/17/18 07:40 10/17/18 07:40 Labs: Laboratory Results - last 24 hr 10/16/18 10/16/18 10/16/18 15:47 17:00 17:00 WBC 9.4 RBC 5.60 Hgb 16.5 Hct 49.4 MCV 88.1 MCH 29.5 MCHC 33.5 RDW 14.1 Plt Count 229 MPV 8.6 Neut % (Auto) 63.8 Lymph % (Auto) 27.3 [place] % (Auto) 7.8 Eos % (Auto) 0.5 Baso % (Auto) 0.6 Neut # (Auto) 6.0 Lymph # (Auto) 2.6 [place] # (Auto) 0.7 Eos # (Auto) 0.0 Baso # (Auto) 0.1 PT INR APTT Sodium 139 Potassium 4.3 Chloride 103 Carbon Dioxide 25 Anion Gap 15 BUN 13 Creatinine 0.8 Est GFR ( Amer) > 60 Est GFR (Non-Af Amer) > 60 POC Glucose (mg/dL) 83 Random Glucose 81 Calcium 9.0 Total Bilirubin 0.5 AST 32 ALT 36 Alkaline Phosphatase 89 Troponin I < 0.0120 NT-Pro-B Natriuret Pep 18.6 Total Protein 7.1 Albumin 4.5 Globulin 2.6 Albumin/Globulin Ratio 1.7 Triglycerides Cholesterol LDL Cholesterol Direct HDL Cholesterol 10/16/18 10/17/18 10/17/18 22:49 07:40 07:40 WBC 8.1 RBC 5.58 Hgb 16.8 Hct 49.2 MCV 88.2 MCH 30.0 MCHC 34.1 RDW 13.9 Plt Count 224 MPV 8.8 Neut % (Auto) 71.8 Lymph % (Auto) 18.4 L [place] % (Auto) 8.6 Eos % (Auto) 0.8 Baso % (Auto) 0.4 Neut # (Auto) 5.8 Lymph # (Auto) 1.5 [place] # (Auto) 0.7 Eos # (Auto) 0.1 Baso # (Auto) 0.0 PT 12.4 H INR 1.1 APTT 33 Sodium Potassium Chloride Carbon Dioxide Anion Gap BUN Creatinine Est GFR ( Amer) Est GFR (Non-Af Amer) POC Glucose (mg/dL) Random Glucose Calcium Total Bilirubin AST ALT Alkaline Phosphatase Troponin I < 0.0120 NT-Pro-B Natriuret Pep Total Protein Albumin Globulin Albumin/Globulin Ratio Triglycerides Cholesterol LDL Cholesterol Direct HDL Cholesterol 10/17/18 07:40 WBC RBC Hgb Hct MCV MCH MCHC RDW Plt Count MPV Neut % (Auto) Lymph % (Auto) [place] % (Auto) Eos % (Auto) Baso % (Auto) Neut # (Auto) Lymph # (Auto) [place] # (Auto) Eos # (Auto) Baso # (Auto) PT INR APTT Sodium 138 Potassium 4.5 Chloride 103 Carbon Dioxide 27 Anion Gap 12 BUN 13 Creatinine 1.0 Est GFR ( Amer) > 60 Est GFR (Non-Af Amer) > 60 POC Glucose (mg/dL) Random Glucose 96 Calcium 9.0 Total Bilirubin 0.6 AST 34 ALT 40 Alkaline Phosphatase 83 Troponin I < 0.0120 NT-Pro-B Natriuret Pep Total Protein 6.7 Albumin 4.1 Globulin 2.6 Albumin/Globulin Ratio 1.6 Triglycerides 122 Cholesterol 103 LDL Cholesterol Direct 63 HDL Cholesterol 30 Assessment & Plan (1) TIA (transient ischemic attack) Assessment and Plan: Symptoms have resolved and work-up is negative. He most likely is having resurgence of previous symptoms of the chronic right caudate head infarct. Will continue dual anti-platelet therapy and obtain PRU for plavix function. He will see me in the office in 2 weeks. Information was provided. Thank you for this consultation. Status: Acute
[2018-10-17] MEDS ORDERED: Pneumococcal 23-Valent Vaccine IM ONE (16:10)
--- NOTE | 2018-10-17 16:14 | CT ---
Date of service: 10/16/2018 PROCEDURE: CT Angiography of the Brain and neck with contrast. HISTORY: r/o cva COMPARISON: CT scan head 10/16/2018 TECHNIQUE: CT angiography of the neck and intracranial arteries was performed. Coronal and sagittal maximum intensity projection reformated images were generated. Exam was image from the proximal aorta to the top of the brain. Radiation dose: Total exam DLP = 649.09 mGy-cm. This CT exam was performed using one or more of the following dose reduction techniques: Automated exposure control, adjustment of the mA and/or kV according to patient size, and/or use of iterative reconstruction technique. Contrast dose: 100 milliliters FINDINGS: INTERNAL CEREBRAL ARTERIES: Unremarkable. The skull base, petrous, cavernous and supraclinoid segments are bilaterally widely patent. No significant stenosis by NASCET criteria is seen. ANTERIOR CEREBRAL ARTERIES: Unremarkable. A1 and A2 segments are widely patent. Smaller distal branches unremarkable, as visualized. MIDDLE CEREBRAL ARTERIES: Unremarkable. M1 and M2 segments are widely patent. Perisylvian branches grossly symmetric. POSTERIOR CIRCULATION: Basilar Artery: Unremarkable. Distal Vertebral Arteries: Unremarkable. Posterior Cerebral Arteries: Unremarkable. Posterior Inferior Cerebellar Arteries: Unremarkable. ANEURYSM/ VASCULAR MALFORMATIONS: None. OTHER FINDINGS: Imaging of the aorta reveals no evidence of significant atherosclerotic narrowing, aneurysm, or plaque. There is normal branching pattern of the great vessels. Subclavian arteries are widely patent. Origins of the vertebral arteries are widely patent. Cervical vertebral arteries are symmetric and normal in outline without evidence of stenosis or dissection. Common carotid arteries are widely patent to the carotid bifurcation region. Carotid bifurcation regions are unremarkable without significant atherosclerotic narrowing. There is no significant atherosclerotic narrowing of the proximal ICA by NASCET criteria. No dissection or intimal flap is seen in the internal carotid arteries. Internal carotid arteries are widely patent to the skull base region. Non angiographic findings reveal minor right hilar lymph nodes and subcarinal lymph nodes. Visualized proximal esophagus is unremarkable. Thoracic inlet is within normal limits. Thyroid gland is within normal limits. A number of small scattered shotty lymph nodes are seen in the neck, more than likely reactive. Visualized posterior nasopharynx, tongue base region, and oral pharynx are within normal limits. Degenerative changes are seen throughout the cervical spine region without malalignment or fracture. Upper thoracic vertebral bodies are also within normal limits. Visualized sinuses show mild mucosal thickening without fluid level. Mastoid air cells are unremarkable. Visualized portions of the brain show no evidence of encephalomalacia or abnormal enhancement. Tongue base region is within normal limits. Parotid glands and submandibular glands are unremarkable. IMPRESSION: Unremarkable CTA of the head and neck. No appreciable stenosis of the major intracranial internal carotid arteries or carotid bifurcation vessels. This agrees with preliminary report.
[2018-10-17 17:02] VITALS: PULSE 58
[2018-10-17 17:46] VITALS: BP 145/70; TEMP 98.4
[2018-10-18] MEDS ORDERED: Pneumococcal 23-Valent Vaccine IM ONE (10:00)
== END 2018-10-17 17:42 | disposition home or self-care (01) | DRG 69 ==
LOC: C.ER 15:34 → C.9E 18:24 → C.6T 20:02
PROVIDERS: ADMIT Internal Medicine; ATTEND Internal Medicine
DX: G45.9 Transient cerebral ischemic attack, unspecified (principal); E78.00 Pure hypercholesterolemia, unspecified; I10 Essential (primary) hypertension; R07.89 Other chest pain; Z86.73 Personal history of transient ischemic attack (TIA), and cerebral infarction without residual deficits; E11.9 Type 2 diabetes mellitus without complications; Z79.82 Long term (current) use of aspirin; Z79.02 Long term (current) use of antithrombotics/antiplatelets; Z79.84 Long term (current) use of oral hypoglycemic drugs